=== PATIENT | female | born 1950 | race Caucasian/White ===

== ENCOUNTER 2018-12-26 10:52 | Emergency (ER) | payer OTHER ==
--- OUTSIDE RECORDS SUMMARY | 2018-12-26 10:54 | XMS REPORT ---
:1950 [facility] Address [address] [place] [address] Dr. G[address] [place] [id number] Care Team Providers Name Role Phone Unavailable Unavailable Unavailable Problems This patient has no known problems. Allergies, Adverse Reactions, Alerts This patient has no known allergies or adverse reactions. Medications This patient has no known medications.
--- OUTSIDE RECORDS SUMMARY | 2018-12-26 10:54 | XMS REPORT | Clinical Summary ---
:1950 Author Organization [facility] Address [address] [place] [address] Care Team Providers Name Role Phone Zay Lozano MD Primary Care Provider Allergies No Known Allergies Medications Medication Sig Dispensed Refills Start Date End Date Status losartan (COZAAR) 50 MG TK 1 T PO QD 0 04/21/2016 Active tablet escitalopram (LEXAPRO) 10 TK 1 T PO QD. 1 04/25/2016 Active MG tablet pentoxifylline (TRENTal) TK 1 T PO TID 2 04/26/2016 Active 400 mg CR tablet terbinafine HCl (LamiSIL) TK 1 T PO QD 0 02/02/2016 Active 250 mg tablet gabapentin (NEURONTIN) Take 300 mg by 0 Active 300 MG capsule mouth 3 (three) times a day. FARXIGA 5 mg tablet 0 09/09/2016 Active metFORMIN (GLUCOPHAGE) TK 1 T PO TWICE 3 06/16/2016 Active 1,000 mg tablet A DAY Active Problems Problem Noted Date Elbow mass 09/17/2016 Family History Medical History Relation Name Comments Cancer Father Diabetes Father Hypertension Father Cancer Mother Clotting disorder Mother Diabetes Mother Heart disease Mother Hypertension Mother Kidney disease Mother Diabetes Other Siblings Heart disease Other Siblings Hypertension Other Siblings Kidney disease Other Siblings Relation Name Status Comments Father Mother Other Siblings Social History Tobacco Use Types Packs/Day Years Used Date Never Smoker Smokeless Tobacco: Never Used Alcohol Use Drinks/Week oz/Week Comments No Sex Assigned at Date Recorded Not on file Job Start Date Occupation Industry Not on file Not on file Not on file Travel History Travel Start Travel End No recent travel history available. Last Filed Vital Signs Not on file Plan of Treatment Health Maintenance Due Date Last Done Comments BREAST CANCER SCREENING 1999 COLON CANCER SCREENING 1999 SHINGLES VACCINES (#1) 1999 65+ PNEUMOCOCCAL VACCINE (1 of 2 - PCV13) 2014 PNEUMOCOCCAL POLYSACCHARIDE VACCINE AGE 65 AND OVER 2014 INFLUENZA VACCINE 04/12/2019 Results Not on fileafter 12/25/2017 Insurance Payer Benefit Plan / Group Subscriber ID Type Phone Address MEDICARE MEDICARE PART A AND B xxxxxxxxxx Medicare [place], [place] [employer] xxxxxxxxx Commercial (Home) [place] [address] Advance Directives Patient has advance care planning documents on file. For more information, please contact:Gavin Weiss[address] [place] [address]
--- NOTE | 2018-12-26 13:00 | RAD REPORT ---
EXAM DESCRIPTION: RAD - Foot Left 3 View - 12/26/2018 12:42 pm CLINICAL HISTORY: Left Foot pain FINDINGS: No fracture or dislocation is seen. A large plantar calcaneal spurs present
--- NOTE | 2018-12-26 13:14 | EDPHYS ---
Physician Documentation [facility] Name: Kelli Faith Age: 68 yrs Sex: Female : 1950 Arrival Date: 12/26/2018 Time: 10:53 Bed DIS1 Private MD: ED Physician Salo Khan HPI: 12/26 13:10 This 68 yrs old Female presents to ER via Ambulatory with complaints of Foot gs Pain. 13:10 The patient presents with pain. The complaints affect the left foot. Onset: The gs symptoms/episode began/occurred 2 month(s) ago. Modifying factors: The symptoms are alleviated by nothing, the symptoms are aggravated by movement. Associated signs and symptoms: Pertinent negatives: numbness. Severity of symptoms: At their worst the symptoms were moderate, in the emergency department the symptoms are unchanged. The patient has experienced similar episodes in the past, chronically. The patient has not recently seen a physician. Historical: - Allergies: 11:02 No Known Allergies; hj - PMHx: 11:02 Diabetes - NIDDM; Hypertension; hj - PSHx: 11:02 Cholecystectomy; Hysterectomy; hj - Immunization history:: Adult Immunizations up to date. - Social history:: The patient lives at home, Smoking status: unknown. - Ebola Screening: : Patient negative for fever greater than or equal to 101.5 degrees Fahrenheit, and additional compatible Ebola Virus Disease symptoms Patient denies exposure to infectious person Patient denies travel to an Ebola-affected area in the 21 days before illness onset No symptoms or risks identified at this time. ROS: 13:10 All other systems are negative. gs Exam: 13:10 Skin: Warm, dry with normal turgor. Normal color with no rashes, no lesions, and no gs evidence of cellulitis. Neuro: Awake and alert, GCS 15, oriented to person, place, time, and situation. Cranial nerves II-XII grossly intact. Motor strength 5/5 in all extremities. Sensory grossly intact. Cerebellar exam normal. Normal gait. 13:10 Constitutional: The patient appears alert, awake. 13:10 Musculoskeletal/extremity: Extremities: noted in the lateral side of left foot: swelling, tenderness, mild, Pulses: are normal with no appreciated deficits, Sensation intact. Vital Signs: 11:02 BP 143 / 55; Pulse 60; Resp 18; Temp 98.3(O); Pulse Ox 98% on R/A; Weight 78.93 kg; hj Height 5 ft. 11 in. (180.34 cm); Pain 8/10; 11:02 Body Mass Index 24.27 (78.93 kg, 180.34 cm) hj MDM: 11:30 Patient medically screened. 13:10 Differential diagnosis: fracture, sprain, arthritis, gout. Data reviewed: vital signs, gs nurses notes, radiologic studies. 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 Response to treatment: the patient's symptoms have mildly improved after treatment, and as a result, I will discharge patient. 12/26 11:30 Order name: Foot Left 3 View XRAY; Complete Time: 13:12 Administered Medications: No medications were administered Disposition: 12/26/18 13:13 Discharged to Home. Impression: Pain in left foot. - Condition is Stable. - Discharge Instructions: Musculoskeletal Pain. - Medication Reconciliation Form, Thank You Letter, Antibiotic Education, Prescription Opioid Use form. - Follow up: Mason Wells DPM; When: 2 - 3 days; Reason: Re-evaluation by your physician. Signatures: Dispatcher [employer] EDShena Sevilla RN RN Theo Beauchamp RN RN hj Starr, Gregory, MD MD Corrections: (The following items were deleted from the chart) 13:36 13:13 12/26/2018 13:13 Discharged to Home. Impression: Pain in left foot. Condition is iw Stable. Forms are Medication Reconciliation Form, Thank You Letter, Antibiotic Education, Prescription Opioid Use. Follow up: Mason Wells; When: 2 - 3 days; Reason: Re-evaluation by your physician. gs
--- NOTE | 2018-12-26 13:14 | ER ---
Nurse's Notes [facility] Name: Kelli Faith Age: 68 yrs Sex: Female : 1950 Arrival Date: 12/26/2018 Time: 10:53 Bed DIS1 Private MD: Diagnosis: Pain in left foot Presentation: 12/26 11:00 Presenting complaint: Patient states: yandy been having pain on my L foot for a month now hj and its swollen now; denies trauma to the area;. Transition of care: patient was not received from another setting of care. Onset of symptoms was December 26, 2018. Risk Assessment: Do you want to hurt yourself or someone else? Patient reports no desire to harm self or others. Initial Sepsis Screen: Does the patient meet any 2 criteria? No. Patient's initial sepsis screen is negative. Does the patient have a suspected source of infection? No. Patient's initial sepsis screen is negative. Care prior to arrival: None. 11:00 Method Of Arrival: Ambulatory 11:00 Acuity: KYARA 4 hj Historical: - Allergies: 11:02 No Known Allergies; hj - PMHx: 11:02 Diabetes - NIDDM; Hypertension; hj - PSHx: 11:02 Cholecystectomy; Hysterectomy; hj - Immunization history:: Adult Immunizations up to date. - Social history:: The patient lives at home, Smoking status: unknown. - Ebola Screening: : Patient negative for fever greater than or equal to 101.5 degrees Fahrenheit, and additional compatible Ebola Virus Disease symptoms Patient denies exposure to infectious person Patient denies travel to an Ebola-affected area in the 21 days before illness onset No symptoms or risks identified at this time. Screenin:57 Abuse screen: Denies threats or abuse. Denies injuries from another. Nutritional iw screening: No deficits noted. Tuberculosis screening: No symptoms or risk factors identified. Fall Risk None identified. Assessment: 11:56 General: Appears in no apparent distress. Behavior is calm, cooperative. Pain: iw Complains of pain in left foot. Neuro: Level of Consciousness is awake, alert, obeys commands, Moves all extremities. Full function. Cardiovascular: Patient's skin is warm and dry. Respiratory: Respiratory effort is even, unlabored. Vital Signs: 11:02 BP 143 / 55; Pulse 60; Resp 18; Temp 98.3(O); Pulse Ox 98% on R/A; Weight 78.93 kg; hj Height 5 ft. 11 in. (180.34 cm); Pain 8/10; 11:02 Body Mass Index 24.27 (78.93 kg, 180.34 cm) ED Course: 10:53 Patient arrived in ED. as 11:01 Triage completed. hj 11:02 Arm band placed on left wrist. hj 11:14 Salo Khan MD is Attending Physician. gs 11:56 Shena Aguero, RN is Primary Nurse. iw 12:41 X-ray completed. Portable x-ray completed in exam room. Patient tolerated procedure sw well. 12:42 Foot Left 3 View XRAY In Process Unspecified. EDMS 13:00 Patient has correct armband on for positive identification. iw 13:13 Mason Wells DPM is Referral Physician. gs 13:35 No provider procedures requiring assistance completed. Patient did not have IV access iw during this emergency room visit. Administered Medications: No medications were administered Outcome: 13:13 Discharge ordered by . gs 13:35 Discharged to home ambulatory. iw 13:35 Condition: good 13:35 Discharge instructions given to patient, Instructed on discharge instructions, follow up and referral plans. Demonstrated understanding of instructions, follow-up care. 13:36 Patient left the ED. iw Signatures: Dispatcher [employer] Angelina Castellanos as Shena Aguero, RN CHELSIE Mallorie Oquendo Henry RN RN Salo Khan MD MD Corrections: (The following items were deleted from the chart) 11:04 11:02 Pulse 60bpm; Resp 18bpm; Pulse Ox 98% RA; Temp 98.3F Oral; 78.93 kg; Height 5 ft. hj 11 in.; BMI: 24.2; Pain 8/10; hj
== END 2018-12-26 13:36 | disposition home or self-care (01) ==
LOC: ER 10:52
DX: M79.672 Pain in left foot (principal); I10 Essential (primary) hypertension
CPT/HCPCS: 99283

== ENCOUNTER 2019-07-14 20:50 | Emergency (ER) | payer OTHER ==
[2019-07-14] MEDS ORDERED: ACETAMINOPHEN 325 MG TABLET ONE (21:22)
[2019-07-14] MEDS ORDERED: IBUPROFEN 400 MG TAB ONE (21:22)
[2019-07-14] MEDS ORDERED: AMOX/K CLAV 875 MG TAB ONE (21:22)
--- NOTE | 2019-07-14 21:28 | ER ---
Nurse's Notes [facility] Name: Kelli Faith Age: 68 yrs Sex: Female : 1950 Arrival Date: 07/14/2019 Time: 20:51 Bed 17 Private MD: Diagnosis: Otitis media, unspecified, left ear Presentation: 07/14 20:57 Presenting complaint: Patient states: left ear X1 day. Transition of care: patient was ak1 not received from another setting of care. Onset of symptoms is unknown. Risk Assessment: Do you want to hurt yourself or someone else? Patient reports no desire to harm self or others. Initial Sepsis Screen: Does the patient meet any 2 criteria? No. Patient's initial sepsis screen is negative. Does the patient have a suspected source of infection? No. Patient's initial sepsis screen is negative. Care prior to arrival: None. 20:57 Method Of Arrival: Ambulatory ak1 20:57 Acuity: KYARA 4 ak1 Triage Assessment: 20:58 General: Appears uncomfortable. ak1 21:17 General: Behavior is calm, cooperative, appropriate for age. cc3 Historical: - Allergies: 20:58 No Known Allergies; ak1 - Home Meds: 20:58 aspirin 81 mg Oral chew 1 tab once daily [Active]; metformin 1,000 mg Oral tr24 2 tabs ak1 once daily [Active]; meloxicam 15 mg Oral tab 1 tab once daily [Active]; losartan 25 mg oral tab 1 tab once daily [Active]; Farxiga 5 mg Oral tab 1 tab once daily [Active]; escitalopram oxalate 10 mg Oral tab 1 tab once daily [Active]; - PMHx: 20:58 Diabetes - NIDDM; Hypertension; ak1 - PSHx: 20:58 Cholecystectomy; Hysterectomy; ak1 - Immunization history:: Adult Immunizations unknown, Flu vaccine is not up to date. Patient has never been vaccinated. - Social history:: Smoking status: Patient/guardian denies using tobacco. - Ebola Screening: : No symptoms or risks identified at this time. Screenin:17 Abuse screen: Denies threats or abuse. Denies injuries from another. Nutritional cc3 screening: No deficits noted. Tuberculosis screening: No symptoms or risk factors identified. Fall Risk Ambulatory Aid- None/Bed Rest/Nurse Assist (0 pts). Gait- Normal/Bed Rest/Wheelchair (0 pts) Mental Status- Oriented to own ability (0 pts). Assessment: 21:17 General: Appears in no apparent distress. uncomfortable, Behavior is calm, cooperative, cc3 appropriate for age. Pain: Complains of pain in left ear Quality of pain is described as aching. Neuro: Level of Consciousness is awake, alert, obeys commands, Oriented to person, place, time, situation, Appropriate for age. Cardiovascular: Denies chest pain, Heart tones S1 S2 present Capillary refill < 3 seconds in bilateral fingers Patient's skin is warm and dry. Respiratory: Airway is patent Respiratory effort is even, unlabored, Respiratory pattern is regular, symmetrical, Breath sounds are clear bilaterally. GI: Abdomen is flat. : No signs and/or symptoms were reported regarding the genitourinary system. EENT: Reports pain in left ear. Derm: Skin is intact, is healthy with good turgor, Skin is pink, warm \T\ dry. normal. Musculoskeletal: No signs and/or symptoms reported regarding the musculoskeletal system. 21:35 Reassessment: Patient appears in no apparent distress at this time. Patient and/or cc3 family updated on plan of care and expected duration. Pain level reassessed. Patient is alert, oriented x 3, equal unlabored respirations, skin warm/dry/pink. PA Page discharged the patient home with prescription given. No IV cannula in situ. Patient left ER vitally stable and ambulatory. No valuables left in the patient's room. Patient denies pain at this time. Patient states feeling better. Patient states symptoms have improved. Vital Signs: 20:58 BP 182 / 69; Pulse 65; Resp 16; Temp 97.8; Pulse Ox 99% on R/A; Weight 78.02 kg (R); ak1 Height 6 ft. 0 in. (182.88 cm) (R); Pain 8/10; 21:30 BP 156 / 65; Pulse 64; Resp 16 S; Pulse Ox 98% on R/A; Pain 3/10; cc3 20:58 Body Mass Index 23.33 (78.02 kg, 182.88 cm) ak1 ED Course: 20:51 Patient arrived in ED. ds1 20:57 Triage completed. ak1 20:58 Arm band placed on Patient placed in an exam room, on a stretcher, Patient notified of ak1 wait time. 21:01 Carlos Mejia PA is PHCP. cp 21:01 Carlos Neely MD is Attending Physician. cp 21:17 Gloria Diaz is Primary Nurse. cc3 21:17 Patient has correct armband on for positive identification. Bed in low position. Call cc3 light in reach. Side rails up X 1. Pulse ox on. NIBP on. 21:35 No provider procedures requiring assistance completed. Patient did not have IV access cc3 during this emergency room visit. Administered Medications: 21:21 Drug: Augmentin 875 mg Route: PO; 21:35 Follow up: Response: No adverse reaction cc3 21:23 Drug: Tylenol 650 mg Route: PO; 21:35 Follow up: Response: No adverse reaction; Pain is decreased cc3 21:25 Drug: Ibuprofen 800 mg Route: PO; 21:35 Follow up: Response: No adverse reaction; Pain is decreased cc3 Outcome: 21:27 Discharge ordered by MD. cp 21:35 Discharged to home ambulatory. cc3 21:35 Condition: stable 21:35 Discharge instructions given to patient, Instructed on discharge instructions, follow up and referral plans. medication usage, Demonstrated understanding of instructions, follow-up care, medications, Prescriptions given X 1. 21:38 Patient left the ED. cc3 Signatures: Linda Peña ds1 Nicole Montes, RN RN ak1 Carlos Mejia PA PA America Garcia Gloria Diaz cc3
--- NOTE | 2019-07-14 21:28 | EDPHYS ---
Physician Documentation [facility] Name: Kelli Faith Age: 68 yrs Sex: Female : 1950 Arrival Date: 07/14/2019 Time: 20:51 Bed 17 Private MD: ED Physician Carlos Neely HPI: 07/14 21:14 This 68 yrs old Female presents to ER via Ambulatory with complaints of Ear cp Pain. 21:14 The patient presents with pain, that is acute. The complaints affect the left ear. cp Onset: The symptoms/episode began/occurred yesterday. Associated signs and symptoms: Pertinent positives: sore throat, cough, Pertinent negatives: fever, lightheadedness, sinus trouble, vertigo, vomiting. Severity of symptoms: in the emergency department the symptoms are unchanged despite home interventions. Historical: - Allergies: 20:58 No Known Allergies; ak1 - Home Meds: 20:58 aspirin 81 mg Oral chew 1 tab once daily [Active]; metformin 1,000 mg Oral tr24 2 tabs ak1 once daily [Active]; meloxicam 15 mg Oral tab 1 tab once daily [Active]; losartan 25 mg oral tab 1 tab once daily [Active]; Farxiga 5 mg Oral tab 1 tab once daily [Active]; escitalopram oxalate 10 mg Oral tab 1 tab once daily [Active]; - PMHx: 20:58 Diabetes - NIDDM; Hypertension; ak1 - PSHx: 20:58 Cholecystectomy; Hysterectomy; ak1 - Immunization history:: Adult Immunizations unknown, Flu vaccine is not up to date. Patient has never been vaccinated. - Social history:: Smoking status: Patient/guardian denies using tobacco. - Ebola Screening: : No symptoms or risks identified at this time. ROS: 21:15 Eyes: Negative for injury, pain, redness, and discharge. cp 21:15 Constitutional: Negative for body aches, chills, fever, poor PO intake. 21:15 ENT: Positive for ear pain, sore throat, Negative for drainage from ear(s), sinus congestion, sinus pain, difficulty swallowing, difficulty handling secretions. 21:15 Cardiovascular: Negative for chest pain, palpitations. 21:15 Respiratory: Positive for cough, Negative for shortness of breath, wheezing. 21:15 Abdomen/GI: Negative for abdominal pain, vomiting, diarrhea, constipation. 21:15 Skin: Negative for rash. 21:15 Neuro: Negative for altered mental status, dizziness, weakness. 21:15 All other systems are negative. Exam: 21:22 Head/Face: Normocephalic, atraumatic. cp 21:22 Constitutional: The patient appears in no acute distress, alert, awake, non-toxic, well developed, well nourished. 21:22 Eyes: Periorbital structures: appear normal, Conjunctiva: normal, no exudate, no injection, Lids and lashes: appear normal, bilaterally. 21:22 ENT: External ear(s): are unremarkable, Ear canal(s): erythema, of the left canal, TM's: erythema, that is mild, on the left, fluid levels, on the left, Examination of the other ear shows no obvious abnormality, Nose: is normal, Mouth: Lips: moist, Oral mucosa: pink and intact, moist, Posterior pharynx: is normal, airway is patent, no erythema, no exudate. 21:22 Neck: ROM/movement: is normal, is supple, without pain, no range of motions limitations, no nuchal rigidity. 21:22 Chest/axilla: Inspection: normal. 21:22 Cardiovascular: Rate: normal. 21:22 Respiratory: the patient does not display signs of respiratory distress, Respirations: normal, no use of accessory muscles, no retractions, no splinting, no tachypnea, labored breathing, is not present. Vital Signs: 20:58 BP 182 / 69; Pulse 65; Resp 16; Temp 97.8; Pulse Ox 99% on R/A; Weight 78.02 kg (R); ak1 Height 6 ft. 0 in. (182.88 cm) (R); Pain 8/10; 21:30 BP 156 / 65; Pulse 64; Resp 16 S; Pulse Ox 98% on R/A; Pain 3/10; cc3 20:58 Body Mass Index 23.33 (78.02 kg, 182.88 cm) ak1 MDM: 21:02 Patient medically screened. cp 21:15 Differential diagnosis: otitis media, otitis externa, ruptured TM, cerumen impaction. cp 21:27 Data reviewed: vital signs, nurses notes, and as a result, I will discharge patient. cp 21:27 Counseling: I had a detailed discussion with the patient and/or guardian regarding: the cp historical points, exam findings, and any diagnostic results supporting the discharge/admit diagnosis, to return to the emergency department if symptoms worsen or persist or if there are any questions or concerns that arise at home. Administered Medications: 21:21 Drug: Augmentin 875 mg Route: PO; 21:35 Follow up: Response: No adverse reaction cc3 21:23 Drug: Tylenol 650 mg Route: PO; 21:35 Follow up: Response: No adverse reaction; Pain is decreased cc3 21:25 Drug: Ibuprofen 800 mg Route: PO; 21:35 Follow up: Response: No adverse reaction; Pain is decreased cc3 Disposition: 07/14/19 21:27 Discharged to Home. Impression: Otitis media, unspecified, left ear. - Condition is Stable. - Discharge Instructions: Otitis Media, Adult. - Prescriptions for Amoxicillin 875 mg Oral Tablet - take 1 tablet by ORAL route every 12 hours for 10 days; 20 tablet. - Medication Reconciliation Form, Thank You Letter, Antibiotic Education, Prescription Opioid Use form. - Follow up: Private Physician; When: 2 - 3 days; Reason: Worsening of condition. - Problem is new. - Symptoms have improved. Addendum: 07/16/2019 08:00 Co-signature as Attending Physician, Carlos Neely MD I agree with the assessment and c denny plan of care. Signatures: Carlos Neely MD MD cha Krenek, Amber, RN RN ak1 Carlos Mejia PA PA cp Cecilio, America wh Gloria Diaz cc3 Corrections: (The following items were deleted from the chart) 07/14 21:38 21:27 07/14/2019 21:27 Discharged to Home. Impression: Otitis media, unspecified, left cc3 ear. Condition is Stable. Forms are Medication Reconciliation Form, Thank You Letter, Antibiotic Education, Prescription Opioid Use. Follow up: Private Physician; When: 2 - 3 days; Reason: Worsening of condition. Problem is new. Symptoms have improved. cp 07/15 19:05 07/14 21:10 Differential diagnosis: otitis media, otitis externa, ruptured TM, acute cp otalgia, cerumen impaction, cp
[2019-07-14 21:43] VITALS: BP 182/69; TEMP 97.8; O2SAT 99
== END 2019-07-14 21:38 | disposition home or self-care (01) ==
LOC: ER 20:50
DX: H66.92 Otitis media, unspecified, left ear (principal); E11.9 Type 2 diabetes mellitus without complications; I10 Essential (primary) hypertension
CPT/HCPCS: 99283

== ENCOUNTER 2019-08-12 07:39 | Emergency (ER) | payer OTHER ==
--- OUTSIDE RECORDS SUMMARY | 2019-08-12 07:41 | XMS REPORT ---
:1950 [facility] Address [address] [place] [address] Dr. G[address]do [address] [place] [id number] Care Team Providers Name Role Phone Unavailable Unavailable Unavailable Problems This patient has no known problems. Allergies, Adverse Reactions, Alerts This patient has no known allergies or adverse reactions. Medications This patient has no known medications.
[2019-08-12 08:19] LABS: Absolute Lymphocytes (CBC) 2.6 K/uL (0.7-4.9); Basophils % 0.5 % (0-1.3); Hematocrit 45.8 % (36.0-45.0); Lymphocytes % 34.4 % (15.3-44.8); MPV 8.4 fL (7.6-11.3); RBC Red Blood Cell Count 5.18 M/uL (3.86-4.86)
[2019-08-12 08:21] LABS: Protime INR 0.87
[2019-08-12] MEDS ORDERED: MORPHINE 4 MG/ML SYR ONE (08:42)
[2019-08-12] MEDS ORDERED: ONDANSETRON 4 MG/2 ML VIAL ONE (08:42)
[2019-08-12 08:43] LABS: ALT/SGPT 17 U/L (12-78); AST/SGOT 12 U/L (15-37); Albumin 3.7 g/dL (3.4-5.0); Alkaline Phosphatase 61 U/L (45-117); BUN Blood Urea Nitrogen 13 mg/dL (7-18); Bicarbonate 25 mmol/L (21-32); Bilirubin Total 0.4 mg/dL (0.2-1.0); Glucose Level 163 mg/dL (74-106); Magnesium 1.9 mg/dL (1.8-2.4); NT PRO-BNP 76 pg/mL (<125); Protein, Total 7.6 g/dL (6.4-8.2); Sodium Level 139 mmol/L (136-145); Troponin (Emerg Dept Use Only) < 0.02 ng/mL (0.0-0.045)
--- NOTE | 2019-08-12 09:10 | EKG ---
Test Date: 2019-08-12 Test Time: 07:56:36 Scarf And Anneal Operator: HB MEASUREMENT RESULTS: Intervals: Rate: 63 LA: 168 QRSD: 90 QT: 414 QTc: 423 [place]: P: -7 LA: 168 QRS: -50 T: 39 INTERPRETIVE STATEMENTS: Sinus rhythm with premature atrial complexes Left anterior fascicular block Septal infarct, age undetermined Abnormal ECG Compared to ECG 05/07/2005 08:41:00 Atrial premature complex(es) now present Left anterior fascicular block now present Myocardial infarct finding now present Sinus bradycardia no longer present Electronically Signed On 08-12-19 09:10:17 POWER SYSTEM OPERATOR by Madi Ayala
--- NOTE | 2019-08-12 12:06 | ER ---
Nurse's Notes [facility] Name: Kelli Faith Age: 68 yrs Sex: Female : 1950 Arrival Date: 08/12/2019 Time: 07:40 Bed 7 Private MD: Zay Lozano Diagnosis: Pain in right shoulder;Subscapular pain Presentation: 08/12 07:48 Presenting complaint: Right upper back pain that radiates to right arm x 3 days, hb anterior chest pain and mild SOB upon waking today. Denies cough/fever. Transition of care: patient was not received from another setting of care. Onset of symptoms was August 09, 2019. Risk Assessment: Do you want to hurt yourself or someone else? Patient reports no desire to harm self or others. Initial Sepsis Screen: Does the patient meet any 2 criteria? No. Patient's initial sepsis screen is negative. Does the patient have a suspected source of infection? No. Patient's initial sepsis screen is negative. Care prior to arrival: None. 07:48 Method Of Arrival: Ambulatory hb 07:48 Acuity: KYARA 3 hb Triage Assessment: 07:45 General: Appears in no apparent distress. comfortable, Behavior is cooperative, bp appropriate for age, anxious. Pain: Complains of pain in chest Pain began 2-3 days ago. EENT: No deficits noted. Neuro: No deficits noted. Cardiovascular: Rhythm is sinus rhythm. Respiratory: No deficits noted. GI: No signs and/or symptoms were reported involving the gastrointestinal system. : No signs and/or symptoms were reported regarding the genitourinary system. Derm: No deficits noted. Musculoskeletal: No deficits noted. Historical: - Allergies: 07:51 No Known Allergies; hb - Home Meds: 07:51 aspirin 81 mg Oral chew 1 tab once daily [Active]; escitalopram oxalate 10 mg Oral tab hb 1 tab once daily [Active]; Farxiga 5 mg Oral tab 1 tab once daily [Active]; losartan 25 mg Oral tab 1 tab once daily [Active]; meloxicam 15 mg Oral tab 1 tab once daily [Active]; metformin 1,000 mg Oral tr24 2 tabs once daily [Active]; - PMHx: 07:51 Diabetes - NIDDM; Hypertension; Mitral Valve Prolapse; hb - PSHx: 07:51 Cholecystectomy; Hysterectomy; hb - Immunization history:: Adult Immunizations up to date. - Social history:: Smoking status: Patient/guardian denies using tobacco. - Ebola Screening: : No symptoms or risks identified at this time. Screenin:11 Abuse screen: Denies threats or abuse. Denies injuries from another. Nutritional bp screening: No deficits noted. Tuberculosis screening: No symptoms or risk factors identified. Fall Risk None identified. Assessment: 07:45 General: SEE TRIAGE NOTE. Pain: Complains of pain in chest Pain does not radiate. bp Pain:. Pain: Pain began 2-3 days ago. Cardiovascular: Rhythm is sinus rhythm. 10:00 Reassessment: S/S RELIEVED, LAB RESULTS PENDING FOR DISPO. bp 12:17 Reassessment: PT D/C HOME AMBULATORY WITH FAMILY, DX WITH MUSCULOSKELETAL PAIN. bp Vital Signs: 07:51 BP 169 / 73; Pulse 71; Resp 16; Temp 98.3; Pulse Ox 100% on R/A; Weight 74.84 kg; hb Height 5 ft. 7 in. (170.18 cm); Pain 7/10; 08:12 BP 153 / 77; Pulse 61; Resp 16; Pulse Ox 100% ; bp 09:18 BP 131 / 52; Pulse 58; Resp 13 S; Pulse Ox 96% on R/A; ca1 10:12 BP 120 / 49; Pulse 57; Resp 19 S; Pulse Ox 100% on R/A; ca1 11:06 BP 125 / 61; Pulse 51; Resp 11; Temp 98.6(O); Pulse Ox 95% on R/A; mh5 12:15 BP 126 / 89; Pulse 66; Resp 18; Temp 98.5; Pulse Ox 97% ; bp 07:51 Body Mass Index 25.84 (74.84 kg, 170.18 cm) hb ED Course: 07:40 Patient arrived in ED. as 07:42 Zay Lozano MD is Private Physician. as 07:42 Chino Talley MD is Attending Physician. ps1 07:50 Triage completed. hb 07:51 Arm band placed on. hb 07:55 Zay Nassar, CHELSIE is Primary Nurse. bp 08:00 Inserted saline lock: 20 gauge in right forearm, using aseptic technique. Blood bp collected. Patient maintains SpO2 saturation greater than 95% on room air. 08:01 XRAY Chest (1 view) In Process Unspecified. EDMS 08:11 Patient has correct armband on for positive identification. Placed in gown. Bed in low bp position. Call light in reach. Side rails up X2. support specialist on. Pulse ox on. NIBP on. 10:32 Repeat lab(s) drawn. by wa, sent to lab. [facility] 10:32 Troponin (emerg Dept Use Only) Sent. [facility] 12:04 Zay Lozano MD is Referral Physician. ps1 12:04 Sree Wills MD is Referral Physician. ps1 12:16 No provider procedures requiring assistance completed. IV discontinued, intact, bp bleeding controlled, No redness/swelling at site. Pressure dressing applied. Administered Medications: 08:40 Drug: morphine 4 mg Route: IVP; Site: right antecubital; bp 12:16 Follow up: Response: Pain is decreased bp 08:40 Drug: Zofran 4 mg Route: IVP; Site: right forearm; bp 12:16 Follow up: Response: No adverse reaction bp Outcome: 12:05 Discharge ordered by MD. ps1 12:16 Discharged to home ambulatory, with family. bp 12:16 Condition: stable 12:16 Discharge instructions given to patient, Instructed on discharge instructions, follow up and referral plans. medication usage, Demonstrated understanding of instructions, follow-up care, medications, Prescriptions given X 1. 12:17 Patient left the ED. bp Signatures: Dispatcher [employer] EDAL Angelina Rosas Heather, CHELSIE HOLGUIN Jammie Rosas [facility] Zay Nassar RN RN bp Chino Talley MD MD ps1 Florinda Frey RN RN ca1 Corrections: (The following items were deleted from the chart) 08:11 07:45 Pain: Pain began 1 day ago. bp bp
--- NOTE | 2019-08-12 12:07 | EDPHYS ---
Physician Documentation [facility] Name: Kelli Faith Age: 68 yrs Sex: Female : 1950 Arrival Date: 08/12/2019 Time: 07:40 Bed 7 Private MD: Zay Lozano ED Physician Chino Talley HPI: 08/12 07:42 This 68 yrs old Female presents to ER via Unassigned with complaints of Chest ps1 Pain. 07:42 The patient or guardian reports chest pain that is located primarily in the substernal ps1 area, anterior chest wall. Onset: 1 week(s) ago, and became worse yesterday. The pain radiates to the right arm, The chest pain is described as aching. Patient has DM2 sees Elma. Had stress/echo this year that was normal for preventative screening without cause. Additionally has hypertension and reduced the medication (losartan) for fatigue. Has hypertension this morning, although attributed to pain. Pain is moderate and aching. No recent trauma or exertion. States that she additionally had hx of Fe deficiency anemia without lab evidence. Takes Fe otherwise. . Historical: - Allergies: 07:51 No Known Allergies; hb - Home Meds: 07:51 aspirin 81 mg Oral chew 1 tab once daily [Active]; escitalopram oxalate 10 mg Oral tab hb 1 tab once daily [Active]; Farxiga 5 mg Oral tab 1 tab once daily [Active]; losartan 25 mg Oral tab 1 tab once daily [Active]; meloxicam 15 mg Oral tab 1 tab once daily [Active]; metformin 1,000 mg Oral tr24 2 tabs once daily [Active]; - PMHx: 07:51 Diabetes - NIDDM; Hypertension; Mitral Valve Prolapse; hb - PSHx: 07:51 Cholecystectomy; Hysterectomy; hb - Immunization history:: Adult Immunizations up to date. - Social history:: Smoking status: Patient/guardian denies using tobacco. - Ebola Screening: : No symptoms or risks identified at this time. ROS: 07:42 Constitutional: Negative for fever, chills, and weight loss, Eyes: Negative for injury, ps1 pain, redness, and discharge, ENT: Negative for injury, pain, and discharge, Respiratory: Negative for shortness of breath, cough, wheezing, and pleuritic chest pain, Abdomen/GI: Negative for abdominal pain, nausea, vomiting, diarrhea, and constipation, MS/Extremity: Negative for injury and deformity, Skin: Negative for injury, rash, and discoloration, Neuro: Negative for headache, weakness, numbness, tingling, and seizure. 07:42 Cardiovascular: Positive for chest pain, of the anterior aspect of right upper chest and right lateral posterior chest. Exam: 07:42 Constitutional: This is a well developed, well nourished patient who is awake, alert, ps1 and in no acute distress. Head/Face: Normocephalic, atraumatic. Eyes: Pupils equal round and reactive to light, extra-ocular motions intact. Lids and lashes normal. Conjunctiva and sclera are non-icteric and not injected. Chest/axilla: Normal chest wall appearance and motion. Nontender with no deformity. No lesions are appreciated. Cardiovascular: Regular rate and rhythm. No gallops, murmurs, or rubs. Normal PMI, no JVD. No pulse deficits. Respiratory: Lungs have equal breath sounds bilaterally, clear to auscultation and percussion. No rales, rhonchi or wheezes noted. No increased work of breathing, no retractions or nasal flaring. Abdomen/GI: Soft, non-tender, with normal bowel sounds. No distension or tympany. No guarding or rebound. No evidence of tenderness throughout. MS/ Extremity: Pulses equal, no cyanosis. Neurovascular intact. Full, normal range of motion. Neuro: Awake and alert, GCS 15, oriented to person, place, time, and situation. Cranial nerves II-XII grossly intact. Sensory grossly intact. Psych: Awake, alert, with orientation to person, place and time. Behavior, mood, and affect are within normal limits. Vital Signs: 07:51 BP 169 / 73; Pulse 71; Resp 16; Temp 98.3; Pulse Ox 100% on R/A; Weight 74.84 kg; hb Height 5 ft. 7 in. (170.18 cm); Pain 7/10; 08:12 BP 153 / 77; Pulse 61; Resp 16; Pulse Ox 100% ; bp 09:18 BP 131 / 52; Pulse 58; Resp 13 S; Pulse Ox 96% on R/A; ca1 10:12 BP 120 / 49; Pulse 57; Resp 19 S; Pulse Ox 100% on R/A; ca1 11:06 BP 125 / 61; Pulse 51; Resp 11; Temp 98.6(O); Pulse Ox 95% on R/A; mh5 12:15 BP 126 / 89; Pulse 66; Resp 18; Temp 98.5; Pulse Ox 97% ; bp 07:51 Body Mass Index 25.84 (74.84 kg, 170.18 cm) hb MDM: 07:56 Patient medically screened. ps1 12:02 Data reviewed: vital signs, nurses notes, lab test result(s), EKG, radiologic studies, ps1 and as a result, I will discharge patient. Counseling: I had a detailed discussion with the patient and/or guardian regarding: the historical points, exam findings, and any diagnostic results supporting the discharge/admit diagnosis, lab results, radiology results, the need for outpatient follow up, a promotions producer, Dr. Wills, to return to the emergency department if symptoms worsen or persist or if there are any questions or concerns that arise at home. ED course: Pt requested OP follow up with Dr. Wills. Pain improved. Delta troponin negative. Strong return precautions given. . 08/12 07:42 Order name: CBC with Diff; Complete Time: 08:50 ps1 08/12 07:42 Order name: Magnesium; Complete Time: 08:47 ps1 08/12 07:42 Order name: NT PRO-BNP; Complete Time: 08:47 ps1 08/12 07:42 Order name: PT-INR; Complete Time: 08:47 ps1 08/12 07:42 Order name: Troponin (emerg Dept Use Only); Complete Time: 08:47 ps1 08/12 07:42 Order name: CMP; Complete Time: 08:47 ps1 08/12 07:42 Order name: XRAY Chest (1 view) ps1 08/12 07:42 Order name: EKG; Complete Time: 07:44 ps1 08/12 07:42 Order name: Cardiac monitoring; Complete Time: 07:55 ps1 08/12 07:42 Order name: EKG - Nurse/Tech; Complete Time: 07:55 ps1 08/12 07:42 Order name: IV Saline Lock; Complete Time: 08:09 ps1 08/12 10:29 Order name: Troponin (emerg Dept Use Only); Complete Time: 11:37 ps1 08/12 07:42 Order name: Labs collected and sent; Complete Time: 08:09 ps1 08/12 07:42 Order name: O2 Per Protocol; Complete Time: 08: ps1 08/12 07:42 Order name: O2 Sat Monitoring; Complete Time: 08:09 ps1 EC:56 Rate is 63 beats/min. Rhythm is regular. QRS [place] is Normal. [place] interval is normal. QRS ps1 interval is normal. QT interval is normal. No Q waves. T waves are Normal. No ST changes noted. Clinical impression: NSR w/ Non-specific ST/T Changes and LAFB, PAC's. Interpreted by me. Administered Medications: 08:40 Drug: morphine 4 mg Route: IVP; Site: right antecubital; bp 12:16 Follow up: Response: Pain is decreased bp 08:40 Drug: Zofran 4 mg Route: IVP; Site: right forearm; bp 12:16 Follow up: Response: No adverse reaction bp Disposition: 08/12/19 12:05 Discharged to Home. Impression: Pain in right shoulder, Subscapular pain. - Condition is Stable. - Discharge Instructions: Musculoskeletal Pain, Shoulder Pain. - Prescriptions for Anaprox DS 550 mg Oral Tablet - take 1 tablet by ORAL route every 12 hours As needed; 20 tablet. - Medication Reconciliation Form, Thank You Letter, Antibiotic Education, Prescription Opioid Use form. - Follow up: Zay Lozano MD; When: As needed; Reason: Further diagnostic work-up, Recheck today's complaints, Continuance of care, Re-evaluation by your physician. Follow up: Sree Wills MD; When: 48 Hours; Reason: Further diagnostic work-up, Recheck today's complaints, Re-evaluation by your physician. - Problem is new. - Symptoms have improved. Signatures: Dispatcher [employer] EDMS Sheila Garces RN RN Zay Huffman RN RN Chino Smith MD MD ps1 Corrections: (The following items were deleted from the chart) 12:05 12:05 08/12/2019 12:05 Discharged to Home. Impression: Pain in right shoulder; ps1 Subscapular pain. Condition is Stable. Forms are Medication Reconciliation Form, Thank You Letter, Antibiotic Education, Prescription Opioid Use. Follow up: Zay Lozano; When: As needed; Reason: Further diagnostic work-up, Recheck today's complaints, Continuance of care, Re-evaluation by your physician. Follow up: Sree Wills; When: 48 Hours; Reason: Further diagnostic work-up, Recheck today's complaints, Re-evaluation by your physician. ps1 12:17 12:05 08/12/2019 12:05 Discharged to Home. Impression: Pain in right shoulder; bp Subscapular pain. Condition is Stable. Forms are Medication Reconciliation Form, Thank You Letter, Antibiotic Education, Prescription Opioid Use. Follow up: Zay Lozano; When: As needed; Reason: Further diagnostic work-up, Recheck today's complaints, Continuance of care, Re-evaluation by your physician. Follow up: Sree Wills; When: 48 Hours; Reason: Further diagnostic work-up, Recheck today's complaints, Re-evaluation by your physician. Problem is new. Symptoms have improved. ps1
[2019-08-12 12:31] VITALS: BP 126/89; TEMP 98.5; O2SAT 97
--- NOTE | 2019-08-12 12:37 | RAD REPORT ---
EXAM DESCRIPTION: RAD - Chest Single View - 08/12/2019 8:03 am CLINICAL HISTORY: CHEST PAIN Chest pain. COMPARISON: CHEST PA AND LAT 2 VIEW dated 12/11/2014 FINDINGS: Portable technique limits examination quality. The lungs are grossly clear. The heart is normal in size. No displaced fractures. Cervical spine hard claudio plate. IMPRESSION: No acute intrathoracic process suspected.
== END 2019-08-12 12:17 | disposition home or self-care (01) ==
LOC: ER 07:39
DX: M25.511 Pain in right shoulder (principal); E11.9 Type 2 diabetes mellitus without complications; I10 Essential (primary) hypertension
CPT/HCPCS: 93005; 85025; 36415; 83735; 85610; 84484 ×2; 80053; 83880; 71045; 96375; 96374; 99285; J2405

== ENCOUNTER 2020-05-27 08:26 | Emergency (ER) | payer OTHER ==
--- OUTSIDE RECORDS SUMMARY | 2020-05-27 09:22 | XMS REPORT | Clinical Summary ---
:1950 Author Organization [facility] Address [address] [place] [address] Care Team Providers Name Role Phone Zay [...] Last Done Comments BREAST CANCER SCREENING 1999 COLONOSCOPY SCREENING 1999 SHINGLES VACCINES (#1) 1999 65+ PNEUMOCOCCAL VACCINE (1 of 2 - PCV13) 2014 INFLUENZA VACCINE 06/12/2020 Results Not on fileafter 05/27/2019 Insurance Payer Benefit Plan / Subscriber ID Effective Dates Phone Addre ss Type Group MEDICARE MEDICARE PART A xxxxxxxxxx 2014-Present ROSE MUNGUIA Medicare AND B COLONIAL COLONIAL LIFE xxxxxxxxx 2015-Present Commercial AND [employer]ID[employer] Advance Directives For more information, please contact: [phone] Type Date Recorded 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
--- OUTSIDE RECORDS SUMMARY | 2020-05-27 09:22 | XMS REPORT | Continuity of Care Document ---
:1950 Author Organization [facility] t Address [address] [place] [address] Care Team Providers Name Role Phone Carmelo Lozano MD Primary Care Physician Pob1, Care Clinic Attending Clinician Unavailable Problems Condition Condition Condition Status Onset Resolution Last Treating Co mments Source Name Details Category Date Date Treatment Clinician Date Elbow mass Elbow mass Disease Active [place] 09-17 [facility] 00:00: st 00 Allergies, Adverse Reactions, Alerts This patient has no known allergies or adverse reactions. Family History Family Member Diagnosis Comments Start Date Stop Date Source Natural father Cancer [facility] Natural father Diabetes [facility] Natural father Hypertension [facility] Natural mother Cancer [facility] Natural mother Clotting disorder [place] [facility] [facility] Natural mother Diabetes [facility] Natural mother Heart disease [facility] Natural mother Hypertension [facility] Natural mother Kidney disease [place] [facility] Other Diabetes [facility] Other Heart disease [facility] Other Hypertension [facility] Other Kidney disease [facility] Social History Social Habit Start Date Stop Date Quantity Comments Source Sex Assigned At [facility] Alcohol intake 2016-07-15 2016-07-15 Current [facility]odist 00:00:00 00:00:00 non-drinker of alcohol (finding) Smoking Status Start Date Stop Date Source Never smoker [facility] Medications Ordered Filled Start Stop Current Ordering Indication Dosage Frequency Signature Comments Components Source Medication Medication Date Date Medication? Clinician (SIG) Name Name gabapentin Yes 300mg [id number] Take 300 [facility] (NEURONTIN) 09-17 [id number] mg by M [facility]i 300 MG 14:50: 3D mouth 3 st capsule 58 (three) times a day. FARXIGA 5 2015-09 Yes Alonso mg tablet 2-29 [facility] 00:00: st 00 metFORMIN 2015-09 Yes TK 1 T PO [place] (GLUCOPHAGE 0-05 TWICE A Metho di ) 1,000 mg 00:00: DAY st tablet 00 pentoxifyll Yes TK 1 T PO [place] ine 8-15 TID [facility] (TRENTal) 00:00: st 400 mg CR 00 tablet escitalopra Yes TK 1 T PO [place] m (LEXAPRO) 8-14 QD. [facility] 10 MG 00:00: st tablet 00 losartan Yes TK 1 T PO [place] (COZAAR) 50 8-10 QD [facility] MG tablet 00:00: st 00 terbinafine Yes TK 1 T PO [place] HCl 5-23 QD [facility] (LamiSIL) 00:00: st 250 mg 00 tablet Procedures This patient has no known procedures. Plan of Care Planned Activity Planned Date Details Comments Source Future Scheduled 2020-06-12 INFLUENZA VACCINE [place] [facility] Test 00:00:00 [code = INFLUENZA VACCINE] Future Scheduled 2014 65+ PNEUMOCOCCAL [facility] Test 00:00:00 VACCINE (1 of 2 - PCV13) [code = 65+ PNEUMOCOCCAL VACCINE (1 of 2 - PCV13)] Future Scheduled 1999 BREAST CANCER [facility] thodist Test 00:00:00 SCREENING [code = BREAST CANCER SCREENING] Future Scheduled 1999 COLONOSCOPY SCREENING [facility] Test 00:00:00 [code = COLONOSCOPY SCREENING] Future Scheduled 1999 SHINGLES VACCINES (#1) [place] [facility] Test 00:00:00 [code = SHINGLES VACCINES (#1)] Encounters Start End Encounter Admission Attending Care Care Encounter Source Date/Time Date/Time Type Type Clinicians Facility Department ID 2020-02-08 2020-02-08 Urgent Pob1, Acute [facility] [id number] 13:02:37 15:09:17 [facility] [id number] [place] [id number] [place] [id number] [address] [address] Results This patient has no known results.
[2020-05-27 09:26] LABS: Absolute Lymphocytes (CBC) 1.8 K/uL (0.7-4.9); Basophils % 1.1 % (0-1.3); Hematocrit 41.8 % (36.0-45.0); Lymphocytes % 25.1 % (15.3-44.8); MPV 8.4 fL (7.6-11.3); RBC Red Blood Cell Count 4.74 M/uL (3.86-4.86)
[2020-05-27] MEDS ORDERED: ONDANSETRON 4 MG/2 ML VIAL ONE (09:26)
[2020-05-27 09:27] LABS: Protime INR 0.86
--- NOTE | 2020-05-27 09:46 | RAD REPORT ---
EXAM DESCRIPTION: Matt Single View05/27/2020 9:36 am CLINICAL HISTORY: sob COMPARISON: 2019 FINDINGS: The lungs appear clear of acute infiltrate. The heart is normal size IMPRESSION: No acute abnormalities displayed
[2020-05-27 09:49] LABS: Urine Blood TRACE (NEG); Urine Glucose 2+ (NEG); Urine Protein NEGATIVE (NEG)
[2020-05-27 09:52] LABS: ALT/SGPT 23 U/L (12-78); AST/SGOT 15 U/L (15-37); Albumin 3.9 g/dL (3.4-5.0); Alkaline Phosphatase 57 U/L (45-117); BUN Blood Urea Nitrogen 24 mg/dL (7-18); Bicarbonate 25 mmol/L (21-32); Bilirubin Direct 0.1 mg/dL (0-0.2); Bilirubin Total 0.4 mg/dL (0.2-1.0); Glucose Level 143 mg/dL (74-106); Lipase 107 U/L (73-393); NT PRO-BNP 33 pg/mL (<125); Protein, Total 7.9 g/dL (6.4-8.2); Sodium Level 139 mmol/L (136-145); Troponin (Emerg Dept Use Only) < 0.02 ng/mL (0.0-0.045)
[2020-05-27 10:17] LABS: Urine Bacteria <20 /HPF (<20); Urine Culture Reflex Order NOT NEEDED; Urine RBC <5 /HPF (NONE SEEN)
--- NOTE | 2020-05-27 10:46 | ER ---
Nurse's Notes [facility] Name: Kelli Faith Age: 69 yrs Sex: Female : 1950 Arrival Date: 05/27/2020 Time: 08:28 Bed 8 Private MD: Zay Lozano Diagnosis: Nausea with vomiting, unspecified;Diarrhea, unspecified;Other malaise and fatigue Presentation: 05/27 08:30 Chief complaint: Patient states: Nausea, vomiting, and diarrhea started this morning. rb1 Fatigue and SOB started three weeks ago. Pt. was tested negative for COVID 2 months ago. Coronavirus screen: Client denies travel out of the [place] in the last 14 days. diarrhea, fatigue, headache, nausea, shortness of breath, vomiting. Ebola Screen: Patient denies travel to an Ebola-affected area in the 21 days before illness onset. Initial Sepsis Screen: Does the patient meet any 2 criteria? No. Patient's initial sepsis screen is negative. Risk Assessment: Do you want to hurt yourself or someone else? Patient reports no desire to harm self or others. Onset of symptoms was May 27, 2020. 08:30 Method Of Arrival: Ambulatory rb1 08:30 Acuity: KYARA 3 rb1 08:30 Initial Sepsis Screen: Does the patient have a suspected source of infection? No. rb1 Patient's initial sepsis screen is negative. Triage Assessment: 08:30 General: Appears in no apparent distress. comfortable, Behavior is calm, cooperative, rb1 Reports fatigue for x 3 weeks. Denies fever. Pain: Complains of pain in headache. Neuro: Level of Consciousness is awake, alert, obeys commands, Oriented to person, place, time, situation. Cardiovascular: Capillary refill < 3 seconds. Respiratory: Reports shortness of breath cough that is dry, Airway is patent Respiratory effort is even, unlabored, Respiratory pattern is regular, symmetrical. GI: Reports diarrhea, nausea, vomiting, since this morning. : No signs and/or symptoms were reported regarding the genitourinary system. Derm: Skin is pink, warm \T\ dry. Historical: - Allergies: 08:30 No Known Allergies; rb1 - Home Meds: 08:30 losartan 25 mg oral tab 1 tab once daily [Active]; Synjardy oral oral [Active]; rb1 - PMHx: 08:30 Diabetes - NIDDM; Hypertension; mitral valve prolapse; rb1 - PSHx: 08:30 Cholecystectomy; Hysterectomy; neck; Hand; Foot; Breast Reduction; Nose; rb1 - Immunization history:: Adult Immunizations up to date. - Social history:: Smoking status: Patient/guardian denies using. Screenin:30 Abuse screen: Denies threats or abuse. Nutritional screening: decreased appetite . rb1 Tuberculosis screening: No symptoms or risk factors identified. Fall Risk None identified. Assessment: 08:30 General: See triage assessment. rb1 10:32 Reassessment: Patient appears in no apparent distress at this time. No changes from tw2 previously documented assessment. Patient and/or family updated on plan of care and expected duration. Pain level reassessed. Patient is alert, oriented x 3, equal unlabored respirations, skin warm/dry/pink. Vital Signs: 08:38 BP 155 / 66; Pulse 71; Resp 16; Temp 97.8; Pulse Ox 100% on R/A; em1 09:38 BP 137 / 57; Pulse 62; Resp 12; Pulse Ox 100% ; rb1 10:32 BP 132 / 60; Pulse 64; Resp 17; Pulse Ox 99% on R/A; tw2 ED Course: 08:28 Patient arrived in ED. ag5 08:28 Zay Lozano MD is Private Physician. ag5 08:30 Arm band placed on right wrist. rb1 08:30 Patient has correct armband on for positive identification. Placed in gown. Bed in low rb1 position. Call light in reach. Side rails up X 1. Pulse ox on. NIBP on. Warm blanket given. 08:32 Carlos Mejia PA is PHCP. cp 08:32 Carlos Neely MD is Attending Physician. cp 08:32 Jennifer Leslie, CHELSIE is Primary Nurse. rb1 08:44 Triage completed. rb1 09:06 Inserted saline lock: 22 gauge in right antecubital area, using aseptic technique. rb1 Blood collected. 09:37 XRAY Chest (1 view) In Process Unspecified. EDMS 11:02 No provider procedures requiring assistance completed. IV discontinued, intact, rb1 bleeding controlled, No redness/swelling at site. Pressure dressing applied. Administered Medications: 09:36 Not Given (Patient Refused): Zofran (Ondansetron) 4 mg IVP once; over 2 minutes rb1 Outcome: 10:45 Discharge ordered by MD. cp 11:02 Discharged to home ambulatory. rb1 11:02 Condition: stable 11:02 Discharge instructions given to patient, Instructed on discharge instructions, follow up and referral plans. medication usage, Demonstrated understanding of instructions, follow-up care, medications, Prescriptions given X 1. 11:03 Patient left the ED. rb1 Addendum: 05/28/2020 14:39 Addendum: COVID-19 Result: Negative result given to RN to notify pt. Notified pt of s s negative COVID 19 swab results. Pt advised that even with a negative test result they should remain in isolation until symptom free for 3 days without medication. Pt also advised to return to the ED for worsening symptoms. Signatures: Dispatcher [employer] Jus Castellanos em1 Linda Perez, RN RN ss Carlos Mejia, Jennifer Horan cp, RN RN rb1 Darlene Boggs RN RN tw2 Marisela Martin 5
--- NOTE | 2020-05-27 10:46 | EDPHYS ---
Physician Documentation [facility] Name: Kelli Faith Age: 69 yrs Sex: Female : 1950 Arrival Date: 05/27/2020 Time: 08:28 Bed 8 Private MD: Zay Lozano ED Physician Carlos Neely HPI: 05/27 08:50 This 69 yrs old Female presents to ER via Ambulatory with complaints of cp Nausea/Vomiting/Diarrhea, Shortness Of Breath. 08:50 The patient presents to the emergency department with nausea, that is mild, vomiting, 1 cp times today, diarrhea, 2 times today. Onset: The symptoms/episode began/occurred this morning. 08:50 Possible causes: unknown. cp 08:50 Associated signs and symptoms: Pertinent positives: fatigue for past several weeks, cp Pertinent negatives: abdominal pain, anorexia, constipation, dysuria, fever, GI bleeding, chest pain. Severity of symptoms: in the emergency department the symptoms are unchanged despite home interventions. Historical: - Allergies: 08:30 No Known Allergies; rb1 - Home Meds: 08:30 losartan 25 mg oral tab 1 tab once daily [Active]; Synjardy oral oral [Active]; rb1 - PMHx: 08:30 Diabetes - NIDDM; Hypertension; mitral valve prolapse; rb1 - PSHx: 08:30 Cholecystectomy; Hysterectomy; neck; Hand; Foot; Breast Reduction; Nose; rb1 - Immunization history:: Adult Immunizations up to date. - Social history:: Smoking status: Patient/guardian denies using. ROS: 08:55 Constitutional: Positive for fatigue, Negative for body aches, chills, fever, poor PO cp intake. 08:55 Eyes: Negative for injury, pain, redness, and discharge. cp 08:55 ENT: Negative for ear pain, sore throat, difficulty swallowing, difficulty handling secretions. 08:55 Cardiovascular: Negative for chest pain, edema, palpitations. 08:55 Respiratory: Positive for shortness of breath, Negative for cough, wheezing. 08:55 Abdomen/GI: Positive for nausea, vomiting, and diarrhea, Negative for abdominal pain, hematemesis, black/tarry stool, rectal bleeding. 08:55 Back: Negative for radiated pain. 08:55 Neuro: Negative for altered mental status, headache, numbness, syncope, weakness. 08:55 All other systems are negative. Exam: 09:00 Constitutional: The patient appears in no acute distress, alert, awake, cp non-diaphoretic, non-toxic, well developed, well nourished. 09:00 Head/Face: Normocephalic, atraumatic. cp 09:00 Eyes: Periorbital structures: appear normal, Conjunctiva: normal, no exudate, no injection, Lids and lashes: appear normal, bilaterally. 09:00 ENT: External ear(s): are unremarkable, Nose: is normal, Mouth: Lips: moist, Oral mucosa: moist, Posterior pharynx: is normal, airway is patent, no erythema, no exudate. 09:00 Neck: ROM/movement: is normal, is supple, without pain, no range of motions limitations. 09:00 Chest/axilla: Inspection: normal, Palpation: is normal, no crepitus, no tenderness. 09:00 Cardiovascular: Rate: normal, Rhythm: regular, Edema: is not appreciated, JVD: is not appreciated. 09:00 Respiratory: the patient does not display signs of respiratory distress, Respirations: normal, no use of accessory muscles, no retractions, labored breathing, is not present, Breath sounds: are clear throughout, no decreased breath sounds. 09:00 Abdomen/GI: Inspection: abdomen appears normal, Palpation: abdomen is soft and non-tender, in all quadrants. 09:00 Back: pain, is absent, ROM is normal. 09:00 Skin: no rash present. 09:00 Neuro: Orientation: to person, place \T\ time. Mentation: is normal, Motor: moves all fours, strength is normal, Gait: is steady. 09:30 ECG was reviewed by the Attending Physician. cp Vital Signs: 08:38 BP 155 / 66; Pulse 71; Resp 16; Temp 97.8; Pulse Ox 100% on R/A; em1 09:38 BP 137 / 57; Pulse 62; Resp 12; Pulse Ox 100% ; rb1 10:32 BP 132 / 60; Pulse 64; Resp 17; Pulse Ox 99% on R/A; tw2 MDM: 08:34 Patient medically screened. cp 09:00 Differential diagnosis: Nonspecific abd pain, gastritis, appendicitis, diverticulitis, cp viral gastroenteritis, gastroenteritis. 10:44 Data reviewed: vital signs, nurses notes, lab test result(s), EKG, radiologic studies, cp plain films, and as a result, I will discharge patient. 10:44 Test interpretation: by ED physician or midlevel provider: ECG. Counseling: I had a cp detailed discussion with the patient and/or guardian regarding: the historical points, exam findings, and any diagnostic results supporting the discharge/admit diagnosis, lab results, radiology results, to return to the emergency department if symptoms worsen or persist or if there are any questions or concerns that arise at home. 05/27 08:44 Order name: Basic Metabolic Panel 05/27 08:44 Order name: CBC with Diff; Complete Time: 09:41 05/27 09:41 Interpretation: Reviewed. 05/27 08:44 Order name: LFT's; Complete Time: 09:55 05/27 09:55 Interpretation: Normal except: GLOB 4.0; A/G 1.0. 05/27 08:44 Order name: Magnesium; Complete Time: 09:55 05/27 08:44 Order name: NT PRO-BNP; Complete Time: 09:55 05/27 08:44 Order name: PT-INR; Complete Time: 09:41 05/27 08:44 Order name: Troponin (emerg Dept Use Only); Complete Time: 09:55 05/27 09:56 Interpretation: Within normal limits: TROPED < 0.02. 05/27 08:44 Order name: XRAY Chest (1 view); Complete Time: 09:55 05/27 09:56 Interpretation: Report review. 05/27 08:44 Order name: COVID-19 05/27 08:44 Order name: Influenza Screen (a \T\ B); Complete Time: 09:55 05/27 09:56 Interpretation: Reviewed. 05/27 08:44 Order name: Urine Microscopic Only 05/27 08:44 Order name: Lipase; Complete Time: 09:55 05/27 08:44 Order name: Basic Metabolic Panel; Complete Time: 09:55 EDMS 05/27 09:55 Interpretation: Normal except: GLUC 143; BUN 24; GFR 53. 05/27 09:39 Order name: Urine Dipstick--Ancillary (enter results); Complete Time: 09:55 em1 09/15 09:56 Interpretation: Normal except: UGLUC 2+; UBLD TRACE. cp 05/27 08:44 Order name: EKG; Complete Time: 08:45 cp 05/27 08:44 Order name: Cardiac monitoring; Complete Time: 09:16 cp 05/27 08:44 Order name: EKG - Nurse/Tech; Complete Time: 09:37 cp 05/27 08:44 Order name: IV Saline Lock; Complete Time: 09:16 cp 05/27 08:44 Order name: Labs collected and sent; Complete Time: 09:16 cp 05/27 08:44 Order name: O2 Per Protocol; Complete Time: 09:16 cp 05/27 08:44 Order name: O2 Sat Monitoring; Complete Time: 09:16 cp 05/27 08:44 Order name: Urine Dipstick-Ancillary (obtain specimen); Complete Time: 09:36 cp EC:30 Rate is 65 beats/min. Rhythm is regular. NC interval is normal. QRS interval is normal. cp QT interval is normal. Interpreted by me. Reviewed by me. Administered Medications: 09:36 Not Given (Patient Refused): Zofran (Ondansetron) 4 mg IVP once; over 2 minutes rb1 Disposition: 16:01 Co-signature as Attending Physician, Carlos Neely MD I agree with the assessment and [facility] plan of care. Disposition: 05/27/20 10:45 Discharged to Home. Impression: Nausea with vomiting, unspecified, Diarrhea, unspecified, Other malaise and fatigue. - Condition is Stable. - Discharge Instructions: Diarrhea, Adult, Nausea and Vomiting, Adult, Fatigue. - Prescriptions for Zofran 4 mg Oral Tablet - take 1 tablet by ORAL route every 12 hours As needed; 20 tablet. - Medication Reconciliation Form, Thank You Letter, Antibiotic Education, Prescription Opioid Use form. - Follow up: Private Physician; When: 2 - 3 days; Reason: Recheck today's complaints. - Problem is new. - Symptoms have improved. Signatures: Dispatcher [employer] EDCarlos Valdivia MD MD cha Page, Corey, PA PA cp Barber, Rebecca, RN RN rb1 Corrections: (The following items were deleted from the chart) 11:03 10:45 05/27/2020 10:45 Discharged to Home. Impression: Nausea with vomiting, rb1 unspecified; Diarrhea, unspecified; Other malaise and fatigue. Condition is Stable. Forms are Medication Reconciliation Form, Thank You Letter, Antibiotic Education, Prescription Opioid Use. Follow up: Private Physician; When: 2 - 3 days; Reason: Recheck today's complaints. Problem is new. Symptoms have improved. cp 21:32 08:55 Constitutional: Negative for body aches, chills, fever, poor PO intake, cp cp
[2020-05-27 11:09] VITALS: TEMP 97.8
[2020-05-27 11:11] VITALS: BP 132/60; O2SAT 99
--- NOTE | 2020-05-28 05:53 | EKG ---
Test Date: 2020-05-27 Test Time: 09:24:07 Checkerer Hand: BRIDGETTE MEASUREMENT RESULTS: Intervals: Rate: 65 OK: 180 QRSD: 94 QT: 420 QTc: 436 [place]: P: 27 OK: 180 QRS: -50 T: 52 INTERPRETIVE STATEMENTS: Normal sinus rhythm Incomplete right bundle branch block Left anterior fascicular block Voltage criteria for left ventricular hypertrophy Abnormal ECG Compared to ECG 08/12/2019 07:56:36 Incomplete right bundle-branch block now present Left ventricular hypertrophy now present Atrial premature complex(es) no longer present Myocardial infarct finding no longer present Electronically Signed On 05-28-20 05:50:21 CDT by Himanshu Stein
== END 2020-05-27 11:03 | disposition home or self-care (01) ==
LOC: ER 08:26
DX: R19.7 Diarrhea, unspecified (principal); Z20.828 Contact with and (suspected) exposure to other viral communicable diseases; R53.81 Other malaise; R53.83 Other fatigue; I10 Essential (primary) hypertension; E11.9 Type 2 diabetes mellitus without complications; I34.1 Nonrheumatic mitral (valve) prolapse
CPT/HCPCS: 93005; 85025; 80048; 36415; 83735; 85610; 80076; 84484; 83690; 83880; 87804 ×2; 71045; 99284; U0002; 81003; 81015; J2405

== ENCOUNTER 2021-01-09 13:07 | Emergency (ER) | payer OTHER ==
--- OUTSIDE RECORDS SUMMARY | 2021-01-09 13:09 | XMS REPORT | Continuity of Care Document ---
:1950 Author Organization [facility] t Address [address] [place] [address] Care Team Providers Name Role Phone Carmelo Lozano MD Primary Care Physician Lab, Fam Pob I Attending Clinician Unavailable Pob1, Care Clinic Attending Clinician Unavailable Problems [...] Comments Start Date Stop Date Source Natural mother Kidney disease [place] [facility] Natural mother Cancer [place] [facility] Natural mother Clotting disorder Shari ston [facility] Natural mother Diabetes [place] [facility] Natural mother Heart disease [place] [facility] Natural mother Hypertension [place] [facility] Other Diabetes [place] [facility] ist Other Heart disease [place] [facility] Other Hypertension [place] [facility] Other Kidney disease [place] [facility] Natural father Cancer [place] [facility] Natural father Diabetes [place] [facility] Natural father Hypertension [place] [facility] Social History Social Habit Start Date Stop Date Quantity Comments Source Tobacco use and 2016-07-15 2016-07-15 Never used Gavin Solorio [facility]ist exposure 00:00:00 00:00:00 Alcohol intake 2016-07-15 2016-07-15 Current [place] [facility] 00:00:00 00:00:00 non-drinker of alcohol (finding) Sex Ass[birth year] [place] Osmin [facility] 00:00:00 00:00:00 Smoking Status Start Date Stop Date Source Never smoker [place] [facility] t Medications Ordered Filled Start Stop Current Ordering Indication Dosage Frequency Signature Comments Components Source Medication Medication Date Date Medication? Clinician (SIG) Name Name gabapentin Yes 300mg [id number] Take 300 [place] (NEURONTIN) 1 [id number] mg by M ethodi 300 MG 14:50: 3D mouth 3 st capsule 58 (three) times a day. FARXIGA 5 2015-09 Yes [place] mg tablet 2-29 Methodi 00:00: st 00 metFORMIN 2015-09 Yes TK 1 T PO Shari stopalomo (GLUCOPHAGE 0-05 TWICE A Metho di ) 1,000 mg 00:00: DAY st tablet 00 pentoxifyll Yes TK 1 T PO H [place] ine 8-15 TID Methodi (TRENTal) 00:00: st 400 mg CR 00 tablet escitalopra Yes TK 1 T PO H ouisela m (LEXAPRO) 8-14 QD. Methodi 10 MG [...] Planned Date Details Comments Source Future Scheduled 2021-04-12 INFLUENZA VACCINE Loraine culver [facility] Test 00:00:00 [code = INFLUENZA VACCINE] Future Scheduled 2014 65+ PNEUMOCOCCAL [place] [facility] Test 00:00:00 VACCINE (1 of 1 - PPSV23) [code = 65+ PNEUMOCOCCAL VACCINE (1 of 1 - PPSV23)] Future Scheduled 1999 BREAST CANCER [facility] thodist Test 00:00:00 SCREENING [code = BREAST CANCER SCREENING] Future Scheduled 1999 COLONOSCOPY SCREENING kaelyn [facility] Test 00:00:00 [code = COLONOSCOPY SCREENING] Future Scheduled 1999 SHINGLES VACCINES (#1) H fifi [facility] Test 00:00:00 [code = SHINGLES VACCINES (#1)] Future Scheduled 1965 COVID-19 VACCINE (1) Shari weiss [facility] Test 00:00:00 [code = COVID-19 VACCINE (1)] Encounters Start End Encounter Admission Attending Care Care Encounter Source Date/Time Date/Time Type Type Clinicians Facility Department ID 2020-10-22 2020-10-22 Laboratory Lab, Adc [facility] [id number] 17:46:43 18:06:43 Only Fam Pob I Health [id number] [place] [id number] Professio [phone] [address]al [address] 2020-02-08 2020-02-08 Urgent Pob1, Acute [facility] [id number] 13:02:37 15:09:17 [facility] [id number] [place] [id number] Professio [phone] nal [address] Results This patient has no known results.
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
--- NOTE | 2021-01-09 14:29 | RAD REPORT ---
EXAM DESCRIPTION: RADSacrum And Coccyx01/09/2021 2:06 pm CLINICAL HISTORY: Back pain FINDINGS: No fracture is seen
[2021-01-09 14:59] VITALS: TEMP 98; O2SAT 99
[2021-01-09 15:00] VITALS: BP 151/71
== END 2021-01-09 14:51 | disposition home or self-care (01) ==
LOC: ER 13:07
DX: M54.5 Low back pain (principal); V89.2XXA Person injured in unspecified motor-vehicle accident, traffic, initial encounter; E11.9 Type 2 diabetes mellitus without complications; I10 Essential (primary) hypertension; I34.1 Nonrheumatic mitral (valve) prolapse; Z79.84 Long term (current) use of oral hypoglycemic drugs
CPT/HCPCS: 72131; 72220; 99283

== ENCOUNTER 2021-05-19 07:36 | Emergency (ER) | payer OTHER ==
--- OUTSIDE RECORDS SUMMARY | 2021-05-19 07:38 | XMS REPORT | Continuity of Care Document ---
:1950 Author Organization [facility] t Address [address] [place] [address] Care Team Providers Name Role Phone Pcp, Does Not Have A Primary Care Physician Only, Db Test Attending Clinician Unavailable Roxanne BOBBIN HANDLER Attending Clinician Lab, Fam Pob I Attending Clinician Unavailable Pob1, Care Clinic Attending Clinician Unavailable Payers Payer Name Policy Type Policy Number Effective Date Expiration Date S ource Problems Condition Condition Condition Status Onset Resolution Last Treating Co mments Source Name Details Category Date Date Treatment Clinician Date Essential Essential Disease Active 2019-0 Uni vers hypertensi hypertensi 5-29 it y of on on 00:00: [place] [address] Medical Branch Elbow mass Elbow mass Disease Active 2017-0 M ethodi 09-17 st 00:00: Hospita 00 l Allergies, Adverse Reactions, Alerts This patient has no known allergies or adverse reactions. Family History Family Member Diagnosis Comments Start Date Stop Date Source Natural mother Kidney disease Method [facility] Natural mother Clotting disorder [facility] Diabetes [facility] Natural mother Heart disease [facility] Natural mother Hypertension [facility] Other [facility] Other Kidney disease [facility] father Cancer [facility] Diabetes [facility] father Hypertension [facility] Social History Social Habit Start Date Stop Date Quantity Comments Source Exposure to Not sure [facility] SARS-CoV-2 [facility] (event[facility] Tobacco use and 2016-07-15 2016-07-15 Never used [facility] exposure 00:00:00 00:00:00 Alcohol intake 2016-07-15 2016-07-15 Current [facility] 00:00:00 00:00:00 non-drinker of alcohol (finding) Sex Ass[birth year] [facility] 00:00:00 00:00:00 Smoking Status Start Date Stop Date Source Never smoker [facility] Medications Ordered Filled Start Stop Current Ordering Indication Dosage Frequency Signature Comments Components Source Medication Medication Date Date Medication? Clinician (SIG) Name Name pregabalin Yes Take by Uni vers (LYRICA 5-29 mouth. ity of ORAL) 18:46: [place] [address] Medical Branch metFORMIN Yes 1000mg Take 1,000 Univers 1,000 mg 5-29 mg by ity of tablet 18:37: mouth 2 [place] [address] (two) Medical times Branch daily with meals. losartan 50 Yes 50mg Take 50 mg Univers mg tablet 2-12 by mouth ity of 15:24: daily. [address] lansoprazol Yes Take by Un murray e (PREVACID 2-12 mouth. ity of ORAL) 15:24: [address] gabapentin Yes 300mg [id number] Take 300 Method[facility] (NEURONTIN) 1-06 [id number] mg by s t 300 MG 20:50: 3D mouth 3 Hospita capsule 58 (three) l times a day. FARXIGA 5 2015-09 Yes Methodi mg tablet 2-29 st 00:00: Hospita 00 l metFORMIN 2015-09 Yes TK 1 T PO Met hodi (GLUCOPHAGE 0-[address] ) 1,000 mg 00:00: DAY Hospita tablet 00 l pentoxifyll Yes TK 1 T PO M ethodi ine 8-[address] (TRENTal) 00:00: Hospita 400 mg CR 00 l tablet escitalopra Yes TK 1 T PO M ethodi m (LEXAPRO) 8-[address] 10 MG 00:00: Hospita tablet 00 l losartan Yes TK 1 T PO Meth spencer (COZAAR) 50 8-[address] MG tablet 00:00: Hospita 00 l terbinafine Yes TK 1 T PO M ethodi HCl 5-[address] (LamiSIL) 00:00: Hospita 250 mg 00 l tablet Procedures This patient has no known procedures. Plan of Care Planned Activity Planned Date Details Comments Source Future Scheduled Test COVID-19 VACCINE (1) [facility] [code = COVID-19 VACCINE (1)] Future Scheduled Test BREAST CANCER SCREENING [facility] [code = BREAST CANCER SCREENING] Future Scheduled Test COLONOSCOPY SCREENING [facility] [code = COLONOSCOPY SCREENING] Future Scheduled Test SHINGLES VACCINES (#1) [facility] [code = SHINGLES VACCINES (#1)] Future Scheduled Test 65+ PNEUMOCO[address]AL [facility] VACCINE (1 of 1 - PPSV23) [code = 65+ PNEUMOCOCCAL VACCINE (1 of 1 - PPSV23)] Future Scheduled Test INFLUENZA VACCINE [code [facility] = INFLUENZA VACCINE] Encounters Start End Encounter Admission Attending Care Care Encounter Source Date/Time Date/Time Type Type Clinicians Facility Department ID 2021-05-13 2021-05-13 Laboratory Only, Ang Db Test [facility] 1.2.8 [id number] Univers 13:58:34 14:08:34 Only Roxanne, [facility] [id number] [facility]y of [place] [id number] Alan as Robin?Blea [id number] [address] Medical Office Building 2020-10-22 2020-10-22 Laboratory Lab, [facility] [id number] 17:46:43 18:06:43 Only Fam Pob I Health [id number] [place] [id number] Professio [phone] nal [address] 2020-02-08 2020-02-08 Urgent Pob1, Acute [facility] [id number] 13:02:37 15:09:17 [facility] [id number] [place] [id number] Professio [phone] nal [address] One Results This patient has no known results.
--- NOTE | 2021-05-19 08:54 | EDPHYS ---
Physician Documentation [facility] Name: Kelli Faith Age: 70 yrs Sex: Female : 1950 Arrival Date: 05/19/2021 Time: 07:40 Bed 19 Private MD: ED Physician Carlos Neely HPI: 05/19 08:59 This 70 yrs old Female presents to ER via Ambulatory with complaints of Poss kb Shingles. 08:59 The patient's rash thought to be caused by an unknown cause. The rash is located on the kb right side of forehead and right taoism. The rash can be described as erythematous, vesicular. Onset: The symptoms/episode began/occurred 5 day(s) ago. Associated signs and symptoms: Pertinent positives: burning sensation, itching, Pain. Severity of symptoms: At their worst the symptoms were mild in the emergency department the symptoms are unchanged. The patient has not experienced similar symptoms in the past. The patient has not recently seen a physician. Historical: - Allergies: 07:47 No Known Allergies; ll1 - PMHx: 07:47 Diabetes - NIDDM; Hypertension; mitral valve prolapse; ll1 - PSHx: 07:47 None; ll1 - Immunization history:: Client reports receiving the 2nd dose of the Covid vaccine, Flu vaccine is not up to date. - Social history:: Smoking status: Patient denies any tobacco usage or history of. ROS: 08:58 Constitutional: Negative for fever, chills, and weight loss. kb 08:58 Skin: Positive for rash, of the right side of forehead and right taoism. 08:58 All other systems are negative. Exam: 08:56 Constitutional: This is a well developed, well nourished patient who is awake, alert, kb and in no acute distress. Head/Face: Normocephalic, atraumatic. Eyes: Pupils equal round and reactive to light, extra-ocular motions intact. Lids and lashes normal. Conjunctiva and sclera are non-icteric and not injected. Cornea within normal limits. Periorbital areas with no swelling, redness, or edema. ENT: Moist Mucous membranes Respiratory: Respirations even and unlabored. No increased work of breathing, no retractions or nasal flaring. MS/ Extremity: Pulses equal, no cyanosis. Neurovascular intact. Full, normal range of motion. Neuro: Awake and alert, GCS 15, oriented to person, place, time, and situation. Moves all extremities. Normal gait. Psych: Awake, alert, with orientation to person, place and time. Behavior, mood, and affect are within normal limits. 08:56 Eyes: Corneas: a fluorescein strip employed to appreciate the findings. 08:58 Skin: rash a mild rash is noted, consistent with zoster, on the right side of forehead kb and right taoism. Vital Signs: 07:45 BP 173 / 67; Pulse 64; Resp 17; Weight 78.93 kg; Height 5 ft. 10 in. (177.80 cm); Pain ll1 7/10; 07:51 BP 171 / 72; Pulse 66; Resp 18; Temp 97.8; Pulse Ox 100% ; Weight 78.02 kg; Height 5 ch5 ft. 10 in. (177.80 cm); Pain 7/10; 09:04 BP 132 / 83; Pulse 83; Resp 18; Pulse Ox 99% ; Pain 4/10; ch5 07:51 Body Mass Index 24.68 (78.02 kg, 177.80 cm) ch5 Visual Acuity: 07:59 Left Eye Visual acuity 20/25, ; Right Eye Visual acuity 20/30, ; Both Eyes Visual ch5 acuity 20/20; With Lenses; MDM: 07:44 Patient medically screened. kb 07:44 Patient medically screened. tyrese 08:56 Data reviewed: vital signs, nurses notes. Data interpreted: Pulse oximetry: on room air kb is 100 %. Interpretation: normal. Counseling: I had a detailed discussion with the patient and/or guardian regarding: the historical points, exam findings, and any diagnostic results supporting the discharge/admit diagnosis, the need for outpatient follow up, an opthalmologist, a family practitioner, to return to the emergency department if symptoms worsen or persist or if there are any questions or concerns that arise at home. ED course: No dendritic lesions noted on eye exam. 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 05/19 08:18 Order name: Eye Tray; Complete Time: 08:42 kb 05/19 08:18 Order name: Fluoresene Opth strip; Complete Time: 08:42 kb 05/19 08:18 Order name: Visual Acuity; Complete Time: 08:32 kb Administered Medications: No medications were administered Disposition: 05/20 08:08 Co-signature as Attending Physician, Carlos Neely MD I agree with the assessment and tyrese plan of care. Disposition Summary: 05/19/21 08:54 Discharge Ordered Location: Home kb Condition: Stable kb Diagnosis - Zoster without complications kb Followup: kb - With: Emergency Department - When: As needed - Reason: Worsening of condition Followup: kb - With: Private Physician - When: 2 - 3 days - Reason: Recheck today's complaints, Continuance of care, Re-evaluation by your physician Discharge Instructions: - Discharge Summary Sheet kb - Shingles, [id number] kb Forms: - Medication Reconciliation Form kb - Thank You Letter kb - Antibiotic Education kb - Prescription Opioid Use kb Prescriptions: - Valtrex 1 gram Oral tablet - take 1 tablet by ORAL route 3 times per day for 7 days; 21 tablet; Refills: 0, kb Product Selection Permitted Signatures: Nena Gastelum, JERONIMO-C JERONIMO-Carlos Waldrop MD MD cha Lewis, Lynsay, RN RN ll1 Corrections: (The following items were deleted from the chart) 05/19 08:59 08:56 Constitutional: This is a well developed, well nourished patient who is awake, kb alert, and in no acute distress. Head/Face: Normocephalic, atraumatic. Eyes: Pupils equal round and reactive to light, extra-ocular motions intact. Lids and lashes normal. Conjunctiva and sclera are non-icteric and not injected. Cornea within normal limits. Periorbital areas with no swelling, redness, or edema. ENT: Moist Mucous membranes Respiratory: Respirations even and unlabored. No increased work of breathing, no retractions or nasal flaring. Skin: Warm, dry with normal turgor. Normal color. MS/ Extremity: Pulses equal, no cyanosis. Neurovascular intact. Full, normal range of motion. Neuro: Awake and alert, GCS 15, oriented to person, place, time, and situation. Moves all extremities. Normal gait. Psych: Awake, alert, with orientation to person, place and time. Behavior, mood, and affect are within normal limits. kb
--- NOTE | 2021-05-19 08:54 | ER ---
Nurse's Notes [facility] Name: Kelli Faith Age: 70 yrs Sex: Female : 1950 Arrival Date: 05/19/2021 Time: 07:40 Bed 19 Private MD: Diagnosis: Zoster without complications Presentation: 05/19 07:45 Chief complaint: Patient states: Painful rash to R side of face and head since Tuesday. ll1 Believes she has shingles. Fever off/on. Coronavirus screen: Vaccine status: Patient reports receiving the 2nd dose of the covid vaccine. Client denies travel out of the [place] in the last 14 days. At this time, the client does not indicate any symptoms associated with coronavirus-19. Ebola Screen: Patient denies travel to an Ebola-affected area in the 21 days before illness onset. Initial Sepsis Screen: Does the patient meet any 2 criteria? No. Patient's initial sepsis screen is negative. Does the patient have a suspected source of infection? Yes: Skin breakdown/wound. Risk Assessment: Do you want to hurt yourself or someone else? Patient reports no desire to harm self or others. Onset of symptoms was May 15, 2021. 07:45 Method Of Arrival: Ambulatory ll1 07:45 Acuity: KYARA 4 ll1 Triage Assessment: 07:47 General: Appears in no apparent distress. Behavior is calm, cooperative, appropriate ll1 for age. Pain: Complains of pain in R side of head and face Pain currently is 7 out of 10 on a pain scale. Quality of pain is described as aching. Neuro: Level of Consciousness is awake, alert, obeys commands, Oriented to person, place, time, situation, Appropriate for age Moves all extremities. Full function Gait is steady, Speech is normal, Reports headache. Cardiovascular: No deficits noted. Respiratory: No deficits noted. Derm: Rash noted that is red, raised, Reports rash to right side of head and face. Historical: - Allergies: 07:47 No Known Allergies; ll1 - PMHx: 07:47 Diabetes - NIDDM; Hypertension; mitral valve prolapse; ll1 - PSHx: 07:47 None; ll1 - Immunization history:: Client reports receiving the 2nd dose of the Covid vaccine, Flu vaccine is not up to date. - Social history:: Smoking status: Patient denies any tobacco usage or history of. Screenin:51 Abuse screen: Denies threats or abuse. Denies injuries from another. Nutritional ch5 screening: No deficits noted. Tuberculosis screening: No symptoms or risk factors identified. Fall Risk None identified. Assessment: 07:51 Reassessment: No changes from previously documented assessment. Pain: Complains of pain ch5 in forehead, right eye and right baptist. Vital Signs: 07:45 BP 173 / 67; Pulse 64; Resp 17; Weight 78.93 kg; Height 5 ft. 10 in. (177.80 cm); Pain ll1 7/10; 07:51 BP 171 / 72; Pulse 66; Resp 18; Temp 97.8; Pulse Ox 100% ; Weight 78.02 kg; Height 5 ch5 ft. 10 in. (177.80 cm); Pain 7/10; 09:04 BP 132 / 83; Pulse 83; Resp 18; Pulse Ox 99% ; Pain 4/10; ch5 07:51 Body Mass Index 24.68 (78.02 kg, 177.80 cm) ch5 Visual Acuity: 07:59 Left Eye Visual acuity 20/25, ; Right Eye Visual acuity 20/30, ; Both Eyes Visual ch5 acuity 20/20; With Lenses; ED Course: 07:40 Patient arrived in ED. ds1 07:43 Nena [facility]astelum [facility]C [facility] kb 07:43 Carlos Neely MD is Attending Physician. kb 07:47 Triage completed. ll1 07:47 Arm band placed on Patient placed in an exam room, on a stretcher. ll1 07:49 Leonel Bowie RN is Primary Nurse. ch5 07:51 Bed in low position. Call light in reach. Side rails up X 1. ch5 07:51 No provider procedures requiring assistance completed. ch5 09:05 Patient did not have IV access during this emergency room visit. ch5 Administered Medications: No medications were administered Outcome: 08:54 Discharge ordered by . kb 09:05 Discharged to home ambulatory. ch5 09:05 Condition: improved 09:05 Discharge instructions given to patient, Prescriptions given X 1. 09:06 Patient left the ED. 5 Signatures: Nena Gastelum FNP-C FNP-Ckb Sanford, Demi ds1 Mariaelena Waters RN RN ll1 Leonel Bowie, RN RN ch5
[2021-05-19] MEDS ORDERED: TETRACAINE HCL 0.5% 4ML OPTH ONE (08:58)
[2021-05-19] MEDS ORDERED: FLUORESCEIN SODIUM 1 MG/WRAP ONE (09:06)
[2021-05-19 09:12] VITALS: TEMP 97.8
[2021-05-19 09:13] VITALS: BP 132/83; O2SAT 99
== END 2021-05-19 09:06 | disposition home or self-care (01) ==
LOC: ER 07:36
DX: B02.9 Zoster without complications (principal); I10 Essential (primary) hypertension
CPT/HCPCS: 99282

== ENCOUNTER 2023-07-13 06:53 | Emergency (ER) | payer OTHER ==
--- OUTSIDE RECORDS SUMMARY | 2023-07-13 06:56 | XMS REPORT | Continuity of Care Document ---
:1950 Author Organization [facility] t Address [address] [facility] [address] [place] [address] Care Team Providers Name Role Phone Pcp, Patient Does Not Have A Primary Care Physician [phone] Only, Ang Db Test Attending Clinician Unavailable Bertha Donaldson Attending Clinician BERTHA WILCOX Attending Clinician Unavailable Lab, Adc Fam Pob I Attending Clinician Unavailable ROCK DANIEL Attending Clinician Unavailable Pob1, Acute Care Clinic Attending Clinician Unavailable Payers Payer Name Policy Type Policy Number Effective Date Expiration Date Delaney MOJICA [id number] 2014 VALERIE 00:00:00 Problems Condition Condition Condition Status Onset Resolution Last Treating Co mments Source Name Details Category Date Date Treatment Clinician Date Essential Essential Disease Active Uni vers hypertensi hypertensi 5-29 it y of on on 00:00: [address] Elbow mass Elbow mass Disease Active 0 M ethodi 09-17 00:00: Hospita 00 l Elbow mass Elbow mass Disease Active 0 M ethodi 09-17 00:00: Hospita 00 l Allergies, Adverse Reactions, Alerts Allergy Allergy Status Severity Reaction(s) Onset Inactive Treating Comm ents Source Name Type Date Date Clinician NO KNOWN Drug Active Univers ALLERGIE Class ity of S [facility] Family History Family Member Diagnosis Comments Start Date Stop Date Source Natural father Cancer [facility] Natural [facility] Diabetes [facility] Natural [facility] Hypertension [facility] Other [facility] Hy[facility] Other Kidney disease [facility] Natural mother Cancer [facility] Natural mother Clotting disorder Met [facility] Natural mother Diabetes [facility] Natural mother Heart disease [facility] Natural mother [facility]pertension [facility] Natural mother [facility] Social History Social Habit Start Date Stop Date Quantity Comments Source Gender identity [facility] Sexual orientation [facility] Exposure to Not sure [facility]-CoV-2 (event) [facility] Tobacco use and 2020-02-08 2020-02-08 Never used Universit y of exposure 00:00:00 00:00:00 [facility] History of Social 2017-03-14 2017-03-[address] function 00:00:00 00:00:00 Hospital Alcohol intake 2016-07-15 2016-07-15 Current [facility] 00:00:00 00:00:00 non-drinker of Hospital alcohol (finding) Sex Assigned At [birth year] [facility] 00:[facility] 00[facility]00 [facility] Smoking Status Start Date Stop Date Source Never smoker [facility] Medications Ordered Filled Start Stop Current Ordering Indication Dosage Frequency Signature Comments Components Source Medication Medication Date Date Medication? Clinician (SIG) Name Name pregabalin Yes Take by [facility] ers (LYRICA 5-29 mouth. ity of ORAL) 18:46: [address] metFORMIN Yes 1000mg Take 1,000 Univers 1,000 mg 5-29 mg by ity of tablet 18:37: mouth [address] [place] [address] (two) Medical times Branch daily with meals. losartan 50 Yes 50mg Take 50 mg Univers mg tablet 2-12 by mouth ity of 15:24: daily. [address] lansoprazol Yes Take by Uni vers e (PREVACID 2-12 mouth. ity of ORAL) 15:24: [address] gabapentin Yes 300mg [id number] Take 300 Method[facility] (NEURONTIN) 1-06 [id number] mg by s t 300 MG 20:50: 3D mouth 3 Hospita capsule 58 (three) l times a day. gabapentin Yes 300mg [id number] Take 300 [facility] (NEURONTIN) 1-06 [id number] mg by s t 300 MG 14:50: 3D mouth 3 Hospita capsule 58 (three) l times a day. gabapentin Yes 300mg [id number] Take 300 [facility] (NEURONTIN) 1- [id number] mg by s t 300 MG 14:50: 3D mouth 3 Hospita capsule 58 (three) l times a day. [place] 2015-09 Yes [facility] mg tablet [facility] 00:00: Hospita 00 l [facility] 2015-09 Yes Methodi mg tablet [facility] 00:00: Hospita 00 l [facility] 2015-09 Yes Methodi mg tablet st 00:00: Hospita 00 l metFORMIN 2015-09 Yes TK 1 T PO Met hodi (GLUCOPHAGE 0-[address] ) 1,000 mg 00:00: DAY Hospita tablet 00 l metFORMIN 2015-09 Yes TK 1 T PO Met hodi (GLUCOPHAGE 0-[address] ) 1,000 mg 00:00: DAY Hospita tablet 00 l metFORMIN 2015-09 Yes TK 1 T PO Met hodi (GLUCOPHAGE 0-[address] ) 1,000 mg 00:00: DAY Hospita tablet 00 l pentoxifyll Yes TK 1 T PO M ethodi ine 8-[address] (TRENTal) 00:00: Hospita 400 mg CR 00 l tablet pentoxifyll Yes TK 1 T PO M ethodi ine 8-[address] (TRENTal) 00:00: Hospita 400 mg CR 00 l tablet pentoxifyll Yes TK 1 T PO M ethodi ine 8-[address] (TRENTal) 00:00: Hospita 400 mg CR 00 l tablet escitalopra Yes TK 1 T PO M ethodi m (LEXAPRO) 8-[address] 10 MG 00:00: Hospita tablet 00 l escitalopra Yes TK 1 T PO M ethodi m (LEXAPRO) 8-[address] 10 MG 00:00: Hospita tablet 00 l escitalopra Yes TK 1 T PO M ethodi m (LEXAPRO) 8-[address] 10 MG 00:00: Hospita tablet 00 l losartan Yes TK 1 T PO Meth spencer (COZAAR) 50 8-[address] MG tablet 00:00: Hospita 00 l losartan 2016-0 Yes TK 1 T PO Meth spencer (COZAAR) 50 8-[address] MG tablet 00:00: Hospita 00 l losartan 2016-0 Yes TK 1 T PO Meth spencer (COZAAR) 50 8-[address] MG tablet 00:00: Hospita 00 l terbinafine 2016-0 Yes TK 1 T PO M ethodi HCl 5-[address] (LamiSIL) 00:00: Hospita 250 mg 00 l tablet terbinafine 2016-0 Yes TK 1 T PO M ethodi HCl 5-[address] (LamiSIL) 00:00: Hospita 250 mg 00 l tablet terbinafine 2016-0 Yes TK 1 T PO M ethodi HCl 5-[address] (LamiSIL) 00:00: Hospita 250 mg 00 l tablet Procedures This patient has no known procedures. Plan of Care Planned Activity Planned Date Details Comments Source Future Scheduled 2023-06-14 INFLUENZA VACCINE (#1) [facility] Test 10:47:20 [code = INFLUENZA VACCINE (#1)] Future Scheduled 2023-06-14 Screening for [facility] Test 10:47:20 malignant neoplasm of colon (procedure) [code = 343628933] Future Scheduled 2023-06-14 Screening for [facility] Test 10:47:20 malignant neoplasm of colon (procedure) [code = 260705131] Future Scheduled 2023-06-14 Screening for [facility] Test 10:47:20 malignant neoplasm of colon (procedure) [code = 246655476] Future Scheduled 2023-06-14 COVID-19 VACCINE (#1) [facility] Test 10:47:20 [code = COVID-19 VACCINE (#1)] Future Scheduled 2023-06-14 BREAST CANCER [facility] Test 10:47:20 SCREENING [code = BREAST CANCER SCREENING] Future Scheduled 2023-06-14 Screening for [facility] Test 10:47:20 malignant neoplasm of colon (procedure) [code = 460522042] Future Scheduled 2023-06-14 Screening for [facility] Test 10:47:20 malignant neoplasm of colon (procedure) [code = 394157909] Future Scheduled 2023-06-14 SHINGLES VACCINES (1 Met [facility] Test 10:47:20 of 2) [code = SHINGLES VACCINES (1 of 2)] Future Scheduled 2023-06-14 65+ [facility]OCOCC[address] [facility] Test 10:47:20 VACCINE (1 - PCV) [code = 65+ PNEUMOCOCCAL VACCINE (1 - PCV)] Future Scheduled 2023-03-23 [facility] Test 10:58:29 malignant neoplasm of colon (procedure) [code = 649922938] Future Scheduled 2023-03-23 [facility] Test 10:58:29 malignant neoplasm of colon (procedure) [code = 727194020] Future Scheduled 2023-03-23 [facility] Test 10:58:29 malignant neoplasm of colon (procedure) [code = 475366559] Future Scheduled 2023-03-23 COVID-19 VACCINE (#1) [facility] Test 10:58:29 [code = COVID-19 VACCINE (#1)] Future Scheduled 2023-03-23 BREAST CANCER [facility] Test 10:58:29 SCREENING [code = BREAST CANCER SCREENING] Future Scheduled 2023-03-23 [facility] for [facility] Test 10:58:29 malignant neoplasm of colon (procedure) [code = 025083418] Future Scheduled 2023-03-23 [facility] for [facility] Test 10:58:29 malignant neoplasm of colon (procedure) [code = 327151859] Future Scheduled 2023-03-23 SHINGLES VACCINES (1 Met [facility] Test 10:58:29 of 2) [code = SHINGLES VACCINES (1 of 2)] Future Scheduled 2023-03-23 65+ [facility]OCOCCAL [facility] Test 10:58:29 VACCINE (1 - PCV) [code = 65+ PNEUMOCOCCAL VACCINE (1 - PCV)] Future Scheduled 2023-03-23 INFLUENZA VACCINE [facility] Test 10:58:29 [code = INFLUENZA VACCINE] Future Scheduled COVID-19 VACCINE (1) Met [facility] Test [code = COVID-19 VACCINE (1)] Future Scheduled BREAST CANCER [facility] Test SCREENING [code = BREAST CANCER SCREENING] Future Scheduled COLONOSCOPY SCREENING [facility] Test [code = COLONOSCOPY SCREENING] Future Scheduled SHINGLES [facility]ACCINES (#1[facility] [code = SHINGLES VACCINES (#1)] Future Scheduled 65+ [facility]OCOCCAL [facility] Test VACCINE (1 of 1 - PPSV23) [code = 65+ PNEUMOCOCCAL VACCINE (1 of 1 - PPSV23)] Future Scheduled INFLUENZA [facility]ACCINE [facility] Test [code = INFLUENZA VACCINE] Encounters Start End Encounter Admission Attending Care Care Encounter Source Date/Time Date/Time Type Type Clinicians Facility Department ID 2023-06-14 2023-06-14 Outpatient [facility] 10:47:14 10:47:14 [id number] F Gael 2023-03-23 2023-03-23 Outpatient [facility] 10:58:26 10:58:26 [id number] F Hume 2023-01-04 2023-01-04 Outpatient [facility] 10:26:00 10:26:00 [id number] F Hume 2021-05-13 2021-05-13 Laboratory Only, Ang Db Test [facility] 1.2.8 [id number] Univers 13:58:34 14:08:34 [facility] [id number] [facility] [place] [id number] Alan as Robin?Blea [id number] [address] Medical Office Building 2021-05-13 2021-05-13 Outpatient Jazlyn WILCOX [facility] [id number] Univers 13:55:00 13:55:00 BERTHA raymondkerri perico alden [facility] 2020-10-22 2020-10-22 Laboratory Lab, [facility] [id number] 17:46:43 18:06:43 Only Fam Pob I Health 350..13.10 [place] [id number] Professio [phone] nal [address] One 2020-10-22 2020-10-22 Outpatient R FREDY [facility] [id number] Univers 18:00:00 18:00:[address] [facility] 2020-02-08 2020-02-08 Urgent Pob1, Acute [facility] [id number] 13:02:37 15:09:17 [facility] 350..13.10 [place] [id number] Professio [phone] nal 0[address] Office [address] One 2020-02-08 2020-02-08 Outpatient R [facility] [id number] Univers 13:20:00 13:20:00 [facility] Results This patient has no known results.
[2023-07-13] MEDS ORDERED: CEFTRIAXONE 1000 MG/VIAL ONE (07:52)
[2023-07-13] MEDS ORDERED: NA CHLORIDE 0.9% 50 ML ONE (07:53)
[2023-07-13 08:00] LABS: Absolute Lymphocytes (CBC) 1.7 K/uL (0.7-4.9); Hematocrit 38.5 % (36.0-45.0); Lymphocytes % 14.3 % (15.3-44.8); MCV 90.5 fL (80-100); MPV 7.9 fL (7.6-11.3); Platelets 231 thou/uL (152-406); RBC Red Blood Cell Count 4.25 M/uL (3.86-4.86)
[2023-07-13 08:48] LABS: Bilirubin Total 0.6 mg/dL (0.2-1.0); Potassium 3.7 mEq/L (3.5-5.1); Protein, Total 6.7 g/dL (6.4-8.2); Thyroid Stimulating Hormone 1.52 uIU/mL (0.358-3.740)
[2023-07-13] MEDS ORDERED: NA CHLORIDE 0.9% 1,000 ML ONE (08:51)
[2023-07-13 09:49] LABS: Specific Gravity 1.025 (1.005-1.030); Urine Bacteria None Seen /HPF (<20); Urine Bilirubin NEGATIVE (Negative); Urine Blood Negative (Negative); Urine Clarity Turbid (Clear); Urine Color Yellow (Yellow); Urine Glucose NEGATIVE (Negative); Urine Mucus Slight /HPF (None Seen); Urine Protein NEGATIVE (Negative); Urine RBC <5 /HPF (None Seen); Urine Urobilinogen Normal (Normal)
--- NOTE | 2023-07-13 10:11 | ER ---
Nurse's Notes [facility] Name: Kelli Faith Age: 72 yrs Sex: Female : 1950 Arrival Date: 07/13/2023 Time: 06:53 Bed 2 Private MD: Diagnosis: Acute serous otitis media, right ear;Urinary frequency;Suprapubic abdominal pain Presentation: 07/13 07:21 Chief complaint: Patient states: Lower abdominal pain and frequent urination for 2 ll1 days. Coronavirus screen: Vaccine status: Patient reports receiving the 2nd dose of the covid vaccine. Client denies travel out of the [place] in the last 14 days. At this time, the client does not indicate any symptoms associated with coronavirus-19. Ebola Screen: Patient denies travel to an Ebola-affected area in the 21 days before illness onset. Initial Sepsis Screen: Does the patient meet any 2 criteria? No. Patient's initial sepsis screen is negative. Does the patient have a suspected source of infection? Yes: Dysuria/Frequency/Urgency/UTI. Risk Assessment: Do you want to hurt yourself or someone else? Patient reports no desire to harm self or others. Onset of symptoms was July 12, 2023. 07:21 Method Of Arrival: Ambulatory ll1 07:21 Acuity: KYARA 3 ll1 Triage Assessment: 07:23 General: Appears uncomfortable, Behavior is calm, cooperative, appropriate for age. ll1 Pain: Complains of pain in abdomen Pain currently is 8 out of 10 on a pain scale. GI: Reports lower abdominal pain, diarrhea. : Reports urinary frequency. Historical: - Allergies: 07:21 No Known Allergies; ll1 - PMHx: 07:21 Hypertension; Diabetes - NIDDM; mitral valve prolapse; ll1 - Immunization history:: Adult Immunizations up to date. - Social history:: Smoking status: Patient denies any tobacco usage or history of. - Family history:: not pertinent. Screenin:[facility] ED Fall Risk Assessment (Adult) History of falling in the last 3 months, mb9 including since admission No falls in past 3 months (0 pts) Confusion or Disorientation No (0 pts) Intoxicated or Sedated No (0 pts) Impaired Gait No (0 pts) Mobility Assist Device Used No (0 pt) Altered Elimination No (0 pt) Score/Fall Risk Level 0 - 2 = Low Risk Oriented to surroundings, Maintained a safe environment, Educated pt \T\ family on fall prevention, incl call for assistance when getting out of bed. Abuse screen: Denies threats or abuse. Nutritional screening: No deficits noted. Tuberculosis screening: No symptoms or risk factors identified. Assessment: 07:59 General: Appears in no apparent distress. Behavior is calm, cooperative. Pain: mb9 Complains of pain in pelvis Pain does not radiate. Quality of pain is described as heavy. Neuro: No deficits noted. Sebastian Agitation-Sedation Scale (RASS): 0 - Alert and Calm Level of Consciousness is awake, alert, obeys commands, Oriented to person, place, time, situation, Appropriate for age. Cardiovascular: Patient's skin is warm and dry. Respiratory: Airway is patent Respiratory effort is even, unlabored, Respiratory pattern is regular, symmetrical. GI: Abdomen is round non-distended, Bowel sounds present X 4 quads. Abd is soft X 4 quads Abdomen is tender to palpation in suprapubic area. : Reports urinary frequency, Denies burning with urination. EENT: No signs and/or symptoms were reported regarding the EENT system. Derm: Skin is pink, warm \T\ dry. Musculoskeletal: Range of motion: intact in all extremities. Vital Signs: 07:21 BP 142 / 60; Pulse 77; Resp 16; Temp 97.9; Pulse Ox 99% ; Weight 74.39 kg; Height 5 ft. ll1 10 in. ; Pain 8/10; 09:25 BP 132 / 68; Pulse 72; Resp 18; Pulse Ox 99% on R/A; mb9 07:21 Body Mass Index 23.53 (74.39 kg, 177.8 cm) ll1 07:21 Pain Scale: Adult ll1 ED Course: 06:57 Patient arrived in ED. mg5 07:18 Arm band placed on Patient placed in an exam room, on a stretcher. ph 07:19 Shlomo Wagner MD is Attending Physician. rt 07:22 Triage completed. ll1 07:37 Amalia Garcia RN is Primary Nurse. mb9 07:37 Placed in gown. Bed in low position. Call light in reach. Side rails up X 1. Client mb9 placed on continuous cardiac and pulse oximetry monitoring. NIBP monitoring applied. 07:37 No provider procedures requiring assistance completed. mb9 07:59 CMP Sent. mb9 07:59 CBC with Diff Sent. mb9 07:59 TSH Sent. mb9 08:01 Missed attempt(s): 22 gauge in right forearm. mb9 08:03 Missed attempt(s): 20 gauge in right wrist. bc6 08:03 Inserted saline lock: 20 gauge in right forearm, using aseptic technique. bc6 10:19 Provided Education on: Fluid intake and proper antibiotic use. os 10:19 IV discontinued, intact, bleeding controlled, No redness/swelling at site. Pressure os dressing applied. Administered Medications: 08:04 Drug: Rocephin - Rocephin (cefTRIAXone) IVPB 1 grams IVPB once over 30 mins; (mix in 50 mb9 mL NS) Route: IVPB; Infused Over: 30 mins; Site: right forearm; 08:40 Follow up: Response: No adverse reaction; IV Status: Completed infusion mb9 08:39 Drug: NS 0.9% IV 1000 ml IV at 1000 ml once Route: IV; Rate: 1000 ml; Site: right mb9 forearm; 09:34 Follow up: Response: No adverse reaction; IV Status: Completed infusion mb9 Medication: 07:37 VIS not applicable for this client. mb9 Outcome: 10:11 Discharge ordered by . rt 10:19 Discharged to home ambulatory, os 10:19 Condition: stable 10:19 Discharge instructions given to patient, Instructed on discharge instructions, follow up and referral plans. medication usage, 10:21 Patient left the ED. os Signatures: Mitzi Tyson RN RN ph Lewis, Lynsay RN RN ll1 Amalia Garcia RN RN mb9 Shlomo Wagner MD MD rt Connie Serrano 6 Len Bloom RN RN os Angeli Casas mg5
--- NOTE | 2023-07-13 10:11 | EDPHYS ---
Physician Documentation [facility] Name: Kelli Faith Age: 72 yrs Sex: Female : 1950 Arrival Date: 07/13/2023 Time: 06:53 Bed 2 Private MD: ED Physician Shlomo Wagner HPI: 07/13 07:38 This 72 yrs old Female presents to ER via Ambulatory with complaints of Abdominal Pain rt - Low. 07:38 Patient presents to the ED with urinary frequency and lower abdominal pressure for the rt past few days. Also reports today that she feels vertiginous occasionally which is a fullness in her right ear. Denies other acute complaints at this time. Pain is pressure-like in nature, nonradiating, no other aggravating or alleviating factors.. Historical: - Allergies: 07:21 No Known Allergies; ll1 - PMHx: 07:21 Hypertension; Diabetes - NIDDM; mitral valve prolapse; ll1 - Immunization history:: Adult Immunizations up to date. - Social history:: Smoking status: Patient denies any tobacco usage or history of. - Family history:: not pertinent. ROS: 07:38 Constitutional: Negative for fever, chills, and weight loss, Cardiovascular: Negative rt for chest pain, palpitations, and edema, Respiratory: Negative for shortness of breath, cough, wheezing, and pleuritic chest pain, MS/Extremity: Negative for injury and deformity, Skin: Negative for injury, rash, and discoloration, Psych: Negative for depression, anxiety, suicide ideation, homicidal ideation, and hallucinations, 07:38 Abdomen/GI: Negative for nausea, vomiting, 07:38 : Positive for urinary frequency, burning with urination, 07:38 Neuro: Positive for dizziness, Negative for altered mental status, Exam: 07:38 Constitutional: This is a well developed, well nourished patient who is awake, alert, rt and in no acute distress. Head/Face: Normocephalic, atraumatic. ENT: Nares patent. No nasal discharge, no septal abnormalities noted. Tympanic membranes are normal and external auditory canals are clear. Oropharynx with no redness, swelling, or masses, exudates, or evidence of obstruction, uvula midline. Mucous membranes moist. Chest/axilla: Normal chest wall appearance and motion. Nontender with no deformity. No lesions are appreciated. Cardiovascular: Regular rate and rhythm with a normal S1 and S2. No gallops, murmurs, or rubs. Normal PMI, no JVD. No pulse deficits. Respiratory: Lungs have equal breath sounds bilaterally, clear to auscultation and percussion. No rales, rhonchi or wheezes noted. No increased work of breathing, no retractions or nasal flaring. Abdomen/GI: Soft, non-tender, with normal bowel sounds. No distension or tympany. No guarding or rebound. No evidence of tenderness throughout. Skin: Warm, dry with normal turgor. Normal color with no rashes, no lesions, and no evidence of cellulitis. MS/ Extremity: Pulses equal, no cyanosis. Neurovascular intact. Full, normal range of motion. Neuro: Awake and alert, GCS 15, oriented to person, place, time, and situation. Cranial nerves II-XII grossly intact. Motor strength 5/5 in all extremities. Sensory grossly intact. Cerebellar exam normal. Normal gait. Psych: Awake, alert, with orientation to person, place and time. Behavior, mood, and affect are within normal limits. 10:28 ENT: Right TM is bulging, erythematous, with effusion, left TM clear. rt Vital Signs: 07:21 BP 142 / 60; Pulse 77; Resp 16; Temp 97.9; Pulse Ox 99% ; Weight 74.39 kg; Height 5 ft. ll1 10 in. ; Pain 8/10; 09:25 BP 132 / 68; Pulse 72; Resp 18; Pulse Ox 99% on R/A; mb9 07:21 Body Mass Index 23.53 (74.39 kg, 177.8 cm) ll1 07:21 Pain Scale: Adult ll1 MDM: 07:20 Patient medically screened. rt 10:28 Differential Diagnosis UTI, diverticulitis, generalized abdominal pain. rt 10:28 Data reviewed: vital signs, nurses notes, lab test result(s). Test considered but Not rt performed: CT: Offered patient CT scan, she declines at this, stating that she wishes to try a course of antibiotics. Instructed patient to return if her symptoms do not go away if she develops worsening symptoms to reevaluate the need for imaging.. Care significantly affected by the following chronic conditions: Diabetes, Hypertension. Counseling: I had a detailed discussion with the patient and/or guardian regarding the historical points, exam findings, and any diagnostic results supporting the discharge/admit diagnosis, lab results, the need for outpatient follow up. 07/13 07:36 Order name: CBC with Diff; Complete Time: 09:39 rt 07/13 07:36 Order name: CMP; Complete Time: 09:39 rt 07/13 07:36 Order name: UAM; Complete Time: 10:00 rt 07/13 07:36 Order name: TSH; Complete Time: 09:39 rt 07/13 07:38 Order name: IV Saline Lock; Complete Time: 08:03 mb9 07/13 08:07 Order name: Labs - recollect needed: recollect green top; Complete Time: 08:12 bd 07/13 08:15 Order name: Labs - recollect needed: recollect urine; Complete Time: 09:34 bd Administered Medications: 08:04 Drug: Rocephin - Rocephin (cefTRIAXone) IVPB 1 grams IVPB once over 30 mins; (mix in 50 mb9 mL NS) Route: IVPB; Infused Over: 30 mins; Site: right forearm; 08:40 Follow up: Response: No adverse reaction; IV Status: Completed infusion mb9 08:39 Drug: NS 0.9% IV 1000 ml IV at 1000 ml once Route: IV; Rate: 1000 ml; Site: right mb9 forearm; 09:34 Follow up: Response: No adverse reaction; IV Status: Completed infusion mb9 Disposition Summary: 07/13/23 10:11 Discharge Ordered Notes: Location: Home rt Problem: new rt Symptoms: are unchanged rt Condition: Stable rt Diagnosis - Acute serous otitis media, right ear rt - Urinary frequency rt - Suprapubic abdominal pain rt Followup: rt - With: Private Physician - When: 5 - 6 days - Reason: Followup: rt - With: Emergency Department - When: As needed - Reason: Worsening of condition Discharge Instructions: - Discharge Summary Sheet rt - Abdominal Pain, Adult rt - Otitis Media, Adult rt - Urinary Frequency, Adult rt Forms: - Medication Reconciliation Form rt - Thank You Letter rt - Antibiotic Education rt - Prescription Opioid Use rt - Patient Portal Instructions rt - Leadership Thank You Letter rt Prescriptions: - Augmentin 875-125 mg Oral Tablet - take 1 tablet ORAL route every 12 hours for 10 days; 20 tablet; Refills: 0, rt Product Selection Permitted Signatures: Dispatcher [employer] Rosalba Moran Lynsay, RN RN ll1 Amalia Garcia RN RN mb9 Shlomo Wagner MD MD rt
[2023-07-13 10:38] VITALS: TEMP 97.9; O2SAT 99
[2023-07-13 10:44] VITALS: BP 132/68
== END 2023-07-13 10:21 | disposition home or self-care (01) ==
LOC: ER 06:53
DX: H65.01 Acute serous otitis media, right ear (principal); R35.0 Frequency of micturition; R10.30 Lower abdominal pain, unspecified; E11.9 Type 2 diabetes mellitus without complications; I10 Essential (primary) hypertension
CPT/HCPCS: 96365; 96361; 85025; 81001; 36415; 84443; 80053; 99284; J7030; J0696

== ENCOUNTER 2023-12-23 13:18 | Observation (INO) | payer OTHER ==
[2023-12-23] MEDS ORDERED: NITROGLYCERIN 0.4 MG/TAB SL ONE (13:36)
[2023-12-23] MEDS ORDERED: MORPHINE 4 MG/ML SYR ONE (13:46)
[2023-12-23] MEDS ORDERED: ONDANSETRON 4 MG/2 ML VIAL ONE (13:46)
[2023-12-23 13:57] LABS: Hematocrit 42.8 % (36.0-45.0); Hemoglobin 14.7 g/dL (12.0-15.0); MCH 30.1 pg (27.0-35.0); MCHC 34.3 g/dL (32.0-36.0); MCV 87.9 fL (80-100); Platelets 281 thou/uL (152-406); RBC Red Blood Cell Count 4.87 M/uL (3.86-4.86)
[2023-12-23 13:58] LABS: Absolute Basophils 0.1 K/uL (0-0.5); Absolute Lymphocytes (CBC) 2.9 K/uL (0.7-4.9); Absolute Monocytes 0.5 K/uL (0.1-1.3); Absolute Neutrophil 5.7 K/uL (1.8-8.0); Basophils % 1.5 % (0-1.3); Eosinophils % 0.5 % (0-4.4); Lymphocytes % 31.2 % (15.3-44.8); MPV 8.1 fL (7.6-11.3); Monocytes % 5.1 % (3.3-12.3); Neutrophils % 61.7 % (41.7-73.7); Red Cell Distribution Width 13.9 % (12.1-15.2)
[2023-12-23 14:09] LABS: Anion Gap 13.8 mEq/L (5.0-15.0); Bilirubin Direct 0.2 mg/dL (0-0.2); Bilirubin Indirect, Calculated 0.5 mg/dL (0.2-0.8); Bilirubin Total 0.7 mg/dL (0.2-1.0); Potassium 3.8 mEq/L (3.5-5.1); Protein, Total 8.2 g/dL (6.4-8.2)
[2023-12-23] MEDS ORDERED: FAMOTIDINE 20 MG/2 ML VIAL IV ONE (14:09)
[2023-12-23] MEDS ORDERED: NA CHLORIDE 0.9% 500 ML ONE (14:09)
[2023-12-23] MEDS ORDERED: HYDROMORPHONE HCL 1 MG/ML INJ ONE ×2 (14:09→16:35)
[2023-12-23 14:10] LABS: Albumin 3.9 g/dL (3.4-5.0); Albumin/Globulin Ratio 0.9 (1.1-1.8); Globulin 4.3 g/dL (2.3-3.5); Magnesium 1.6 mg/dL (1.6-2.4); Troponin High Sensitivity 4.1 pg/mL (<58.9)
[2023-12-23 15:07] LABS: Urine Bacteria None Seen /HPF (<20); Urine Bilirubin NEGATIVE (Negative); Urine Blood Negative (Negative); Urine Clarity Clear (Clear); Urine Color Colorless (Yellow); Urine Culture Reflex Order NOT NEEDED; Urine Glucose NEGATIVE (Negative); Urine Ketones 1+ (Negative); Urine Micro Reflex YN NO BILL MICROSCOPIC; Urine Mucus Slight /HPF (None Seen); Urine Nitrite NEGATIVE (Negative); Urine Protein NEGATIVE (Negative); Urine Urobilinogen Normal (Normal); Urine WBC <5 /HPF (<5); Urine pH 7.5 (5.0-7.0)
[2023-12-23] MEDS ORDERED: KETOROLAC 30 MG/ML INJ ONE (15:08)
[2023-12-23] MEDS ORDERED: HYDRALAZINE HCL 20 MG/ML VIAL ONE (15:08)
[2023-12-23 15:15] LABS: Specific Gravity > 1.030 (1.005-1.030)
--- NOTE | 2023-12-23 15:56 | RAD REPORT ---
EXAM DESCRIPTION: CT - Chest For Pe Angio - 12/23/2023 2:28 pm CLINICAL HISTORY: Chest pain;SOB COMPARISON: Chest Single View dated 12/23/2023 TECHNIQUE: Thin axial CT images of the chest were obtained following administration of 100 mL Isovue 370 IV contrast. Multiplanar reconstructions, and maximum intensity projection reconstructions were generated and reviewed. Exam utilizes a protocol for optimal evaluation of pulmonary arterial tree. All CT scans are performed using dose optimization technique as appropriate and may include automated exposure control or mA/KV adjustment according to patient size. FINDINGS: Pulmonary arteries are normal. No emboli or other suspicious finding. No acute or signific ant aorta findings. Few scattered subcentimeter granulomas as well as small mediastinal and hilar calcified lymph nodes, suggesting sequelae of remote granulomatous disease. No mass or infiltrate in the lung parenchyma. No pleural thickening or pleural effusion. No pneumotho rax. No abnormal mediastinal or hilar masses or lymphadenopathy seen. No chest wall mass or abnormal axill iary lymphadenopathy. IMPRESSION: No evidence of acute central pulmonary emboli. Negative CT scan of the chest for other significant findings.
--- NOTE | 2023-12-23 15:57 | RAD REPORT ---
EXAM DESCRIPTION: RADChest Single View12/23/2023 2:36 pm CLINICAL HISTORY: CHEST PAIN COMPARISON: Chest Pa And Lat (2 Views) dated 10/18/2022; Chest Pa And Lat (2 Views) dated 08/20/2021; C hest Single View dated 05/27/2020; Chest Single View dated 08/12/2019 TECHNIQUE: Portable AP view of the chest. FINDINGS: The lungs are clear. No pneumothorax or effusion. The cardiomediastinal contours are unre markable. IMPRESSION: No acute cardiopulmonary process.
[2023-12-23] MEDS ORDERED: NA CHLORIDE 0.9% 100 ML ONE (16:36)
[2023-12-23] MEDS ORDERED: METHOCARBAMOL 1,000 MG/10 ML VIAL ONE (16:36)
[2023-12-23] MEDS ORDERED: METHYLPREDNISOLONE 40 MG INJ ONE (16:36)
--- NOTE | 2023-12-23 19:03 | EDPHYS ---
Physician Documentation [facility] Name: Kelli Faith Age: 73 yrs Sex: Female : 1950 Arrival Date: 12/23/2023 Time: 13:18 Bed 6 Private MD: ED Physician Carlos Neely HPI: 12/22 13:32 This 73 yrs old Female presents to ER via Unassigned with complaints of Chest Pain, cp Shortness Of Breath. 13:32 The patient or guardian reports chest pain that is located primarily in the right side cp anterior and lateral chest. 13:32 Onset: 3 day(s) ago. The pain radiates to the right arm. Associated signs and symptoms: cp Pertinent positives: cough, shortness of breath, Pertinent negatives: diaphoresis, lower extremity pain, lower extremity swelling, syncope. The chest pain is described as sharp. Duration: The patient or guardian reports a single episode, that is still ongoing, and worsening. Historical: - Allergies: 13:33 No Known Allergies; hb - PMHx: 13:33 Diabetes - NIDDM; Hypertension; mitral valve prolapse; hb - Immunization history:: Adult Immunizations up to date. - Infectious Disease History:: Denies. - Social history:: Smoking status: Patient/guardian denies using tobacco. ROS: 13:38 Constitutional: Negative for body aches, chills, fever, poor PO intake, cp 13:38 Cardiovascular: Positive for chest pain, of the right side of chest, Negative for edema, palpitations, 13:38 Respiratory: Positive for cough, with no reported sputum, shortness of breath, at rest. Negative for shortness of breath, 13:38 Abdomen/GI: Positive for nausea and vomiting, Negative for diarrhea, constipation, 13:38 Skin: Negative for rash, 13:38 Neuro: Negative for altered mental status, dizziness, headache, numbness, syncope, weakness, 13:38 Back: Negative for pain at rest, pain with movement, cp 13:38 All other systems are negative, cp Exam: 13:40 ECG was reviewed by the Attending Physician. cp 13:45 Constitutional: The patient appears in no acute distress, alert, awake, cp non-diaphoretic, non-toxic, well developed, well nourished, in obvious pain, uncomfortable, 13:45 Head/Face: Normocephalic, atraumatic. cp 13:45 Eyes: Periorbital structures: appear normal, Conjunctiva: normal, no exudate, no injection, Sclera: no appreciated abnormality, Lids and lashes: appear normal, bilaterally, 13:45 ENT: External ear(s): are unremarkable, Nose: is normal, Mouth: Lips: moist, Oral mucosa: pink and intact, moist, Posterior pharynx: is normal, airway is patent, no erythema, no exudate, 13:45 Neck: ROM/movement: is normal, is supple, without pain, no range of motions limitations, 13:45 Chest/axilla: Inspection: normal, Palpation: crepitus, is not appreciated, tenderness, that is severe, of the right lower lateral chest wall, 13:45 Cardiovascular: Rate: normal, Rhythm: regular, Edema: is not appreciated, JVD: is not appreciated, 13:45 Respiratory: the patient does not display signs of respiratory distress, Respirations: normal, no use of accessory muscles, no retractions, labored breathing, is not present, Breath sounds: are clear throughout, no decreased breath sounds, no stridor, no wheezing, 13:45 Abdomen/GI: Inspection: abdomen appears normal, Palpation: abdomen is soft and non-tender, in all quadrants, 13:45 Back: CVA tenderness, is absent, 13:45 Skin: cellulitis, is not appreciated, no rash present. 13:45 Neuro: Orientation: to person, place \T\ time. Mentation: is normal, Motor: moves all fours, strength is normal, Sensation: is normal, Vital Signs: 13:32 BP 218 / 98; Pulse 66; Resp 18; Temp 98.1; Pulse Ox 100% on R/A; Weight 74.39 kg; hb Height 5 ft. 10 in. ; Pain 10/10; 14:19 BP 193 / 70; Pulse 72; Resp 18 S; Pulse Ox 100% on R/A; aa5 15:28 BP 183 / 64; Pulse 83; Resp 16 S; Pulse Ox 100% on R/A; aa5 16:40 BP 170 / 65; Pulse 76; Resp 20 S; Pulse Ox 98% on R/A; aa5 17:13 Pulse Ox 88% on R/A; aa5 17:14 Pulse Ox 100% on 2 lpm NC; aa5 17:30 BP 179 / 88; Pulse 76; Resp 17 S; Pulse Ox 100% on 2 lpm NC; aa5 19:00 BP 184 / 61; Pulse 69; Resp 14; Pulse Ox 100% on R/A; tm6 20:00 BP 160 / 70; Pulse 68; Resp 16; Pulse Ox 100% on R/A; tm6 21:00 BP 176 / 70; Pulse 68; Resp 14; Pulse Ox 100% on R/A; tm6 21:54 BP 174 / 71; Pulse 66; Resp 14; Temp 98; Pulse Ox 100% on R/A; tm6 13:32 Body Mass Index 23.53 (74.39 kg, 177.8 cm) hb 13:32 Pain Scale: Adult hb 17:13 low O2 sat noted post dilaudid administration, pt awake and alert, states feeling aa5 better, pain decreased. MDM: 13:27 Patient medically screened. cp 15:00 Differential diagnosis: acute myocardial infarction, acute pericarditis, pericarditis, cp pleurisy, pneumonia, pneumothorax, pulmonary embolus. 19:05 The patient was given aspirin in the Emergency Department. cp 19:05 Data reviewed: vital signs, nurses notes, lab test result(s), EKG, radiologic studies, cp CT scan, plain films. I considered the following discharge prescriptions or medication management in the emergency department Medications were administered in the Emergency Department. See MAR. Independent interpretation of the following test(s) in the Emergency Department EKG: See my EKG interpretation above. 19:10 Management of patient was discussed with the following: Hospitalist: DR San will cp admit and DR Aguilar will consult for cardiology. 12/22 13:31 Order name: Basic Metabolic Panel; Complete Time: 14:13 cp 12/22 14:13 Interpretation: Normal except: NA 135; GLUC 179; GFR 65; CA 10.4. cp 12/22 13:31 Order name: CBC with Diff; Complete Time: 14:13 cp 04 14:13 Interpretation: Normal except: RBC 4.87; BASO% 1.5. cp 12/22 13:31 Order name: LFT's; Complete Time: 14:13 cp 12/22 14:50 Interpretation: Normal except: AST 12; GLOB 4.3; A/G 0.9. cp 12/22 13:31 Order name: Magnesium; Complete Time: 14:13 cp 12/22 14:50 Interpretation: Reviewed. cp 12/22 13:31 Order name: NT PRO-BNP; Complete Time: 14:13 cp 12/22 13:31 Order name: PT-INR; Complete Time: 14:13 cp 12/22 13:31 Order name: Troponin HS; Complete Time: 14:13 cp 12/22 14:50 Interpretation: Reviewed. cp 12/22 13:31 Order name: Lipase; Complete Time: 14:13 cp 12/22 13:38 Order name: Urinalysis W/Microscopic; Complete Time: 15:27 cp 12/22 15:27 Interpretation: Normal except: Urine SG > 1.030; UKET 1+; UPH 7.5; UESTR 500; URBC 5-10.cp 12/22 16:22 Order name: Troponin HS: 3 hr repeat; Complete Time: 17:53 cp 12/22 20:10 Order name: Creatine Phosphokinase EDAR 12/22 20:10 Order name: CBC with Automated Diff EDMS 12/22 20:10 Order name: CBC with Automated Diff EDMS 12/22 20:10 Order name: Comprehensive Metabolic Panel EDMS 12/22 20:10 Order name: Comprehensive Metabolic Panel EDMS 12/22 20:22 Order name: Troponin High Sensitivity EDAR 12/22 20:22 Order name: Troponin High Sensitivity EDAR 12/22 13:31 Order name: XRAY Chest (1 view); Complete Time: 15:59 cp 12/22 15:59 Interpretation: Report review. cp 12/22 14:14 Order name: CT Chest For PE Angio; Complete Time: 15:59 cp 12/22 16:20 Interpretation: Report reviewed. 12/22 20:01 Order name: Ribs Right EDMS 12/22 20:10 Order name: CONS Physician Consult EDAR 12/22 13:31 Order name: Cardiac monitoring; Complete Time: 13:36 cp 12/22 13:31 Order name: EKG - Nurse/Tech; Complete Time: 13:36 cp 12/22 13:31 Order name: IV Saline Lock; Complete Time: 13:44 cp 12/22 13:31 Order name: Labs collected and sent; Complete Time: 13:44 cp 12/22 13:31 Order name: O2 Per Protocol; Complete Time: 13:36 cp 12/22 13:31 Order name: O2 Sat Monitoring; Complete Time: 13:36 cp 12/22 18:25 Order name: EKG - Nurse/Tech; Complete Time: 19:10 cp EC:40 Rate is 67 beats/min. Rhythm is regular. MD interval is normal. QRS interval is normal. cp QT interval is normal. T waves are Inverted in lead aVR. Interpreted by me. Reviewed by me. Administered Medications: 13:38 Drug: Nitroglycerin Sublingual 0.4 mg Sublingual once Route: Sublingual; aa5 13:45 Follow up: Response: No adverse reaction aa5 14:00 Drug: morphine IVP or IV 4 mg IVP once over 4 mins Route: IVP; Infused Over: 4 mins; aa5 Site: right antecubital; 14:10 Follow up: Response: No adverse reaction; Pain is unchanged, physician notified aa5 14:00 Drug: Ondansetron IVP 4 mg IVP once; over 2 minutes Route: IVP; Site: right antecubital;aa5 14:10 Follow up: Response: No adverse reaction aa5 14:15 Drug: NS 0.9% IV 500 ml IV at 125 ml/hr continuous Route: IV; Rate: 125 ml/hr; Site: aa5 right antecubital; 14:15 Drug: Famotidine IVP 20 mg IVP once; dilute with 10 mL 0.9% NaCl; give over 2 minutes aa5 Route: IVP; Site: right antecubital; 14:20 Follow up: Response: No adverse reaction aa5 14:15 Drug: HYDROmorphone IVP 1 mg IVP once Route: IVP; Site: right antecubital; aa5 14:20 Follow up: Response: No adverse reaction aa5 15:15 Drug: hydrALAZINE IVP 20 mg IVP once; For SBP > 140 mmHg. Hold if less than 120 mmHg. aa5 Route: IVP; Site: right antecubital; 15:28 Follow up: Response: No adverse reaction; Blood pressure is lowered aa5 15:15 Drug: Ketorolac IVP 15 mg IVP once Route: IVP; Site: right antecubital; aa5 15:28 Follow up: Response: No adverse reaction; Pain is unchanged, physician notified aa5 16:40 Drug: HYDROmorphone IVP 1 mg IVP once Route: IVP; Site: right antecubital; aa5 17:00 Follow up: Response: No adverse reaction; Pain is decreased aa5 16:40 Drug: MethylPrednisoLONE IVP 80 mg IVP once Route: IVP; Site: right antecubital; aa5 17:00 Follow up: Response: No adverse reaction aa5 16:43 Drug: Methocarbamol IVPB 1 grams IVPB once over 1 hrs; (mix in NS 100 mL) Route: IVPB; aa5 Infused Over: 1 hrs; Site: right antecubital; 17:43 Follow up: IV Status: Completed infusion aa5 19:23 Drug: Aspirin PO Chewable Tablet 324 mg PO once; 81 mg tablets x 4 Route: PO; iw 21:52 Follow up: Response: No adverse reaction rv Disposition Summary: 12/23/23 19:03 Hospitalization Ordered Notes: Hospitalization Status: Observation cp Provider: Princess San cp Location: Telemetry/MedSurg (observation) cp Condition: Stable cp Problem: new cp Symptoms: have improved cp Bed/Room Type: Standard cp Room Assignment: 425(12/23/23 20:53) cg Diagnosis - Chest pain, unspecified cp Forms: - Medication Reconciliation Form cp - SBAR form cp - Leadership Thank You Letter cp Signatures: Dispatcher [employer] Shena Marshall RN RN Hilary Rodriguez RN RN aa5 Carlos Mejia PA PA cp Jessi Villalobos RN RN Sheila Garces RN RN Ramiro Gann RN rv Corrections: (The following items were deleted from the chart) 13:32 13:32 BASIC METABOLIC PANEL+C.LAB.BRZ ordered. EDMS EDMS 13:32 13:32 CBC+H.LAB.BRZ ordered. EDMS EDMS 13:32 13:32 HEPATIC FUNCTION+C.LAB.BRZ ordered. EDMS EDMS 13:32 13:32 MAGNESIUM+C.LAB.BRZ ordered. EDMS EDMS 13:32 13:32 PROBNP+C.LAB.BRZ ordered. EDMS EDMS 13:32 13:32 PROTIME (+INR)+COAG.LAB.BRZ ordered. EDMS EDMS 13:32 13:32 Troponin High Sensitivity+C.LAB.BRZ ordered. EDMS EDMS 13:32 13:32 LIPASE+C.LAB.BRZ ordered. EDMS EDMS 13:32 13:32 Chest Single View+RAD.RAD.BRZ ordered. EDMS EDMS 14:04 13:38 Respiratory: Positive for cough, with no reported sputum, Negative for shortness cp of breath, wheezing, cp 20:53 19:03 cp cg
--- NOTE | 2023-12-23 19:03 | ER ---
Nurse's Notes [facility] Name: Kelli Faith Age: 73 yrs Sex: Female : 1950 Arrival Date: 12/23/2023 Time: 13:18 Bed 6 Private MD: Diagnosis: Chest pain, unspecified Presentation: 12/22 13:32 Chief complaint: Worsening right sided chest pain that radiates to right face and arm x hb 3 days. Coronavirus screen: At this time, the client does not indicate any symptoms associated with coronavirus-19. Ebola Screen: No symptoms or risks identified at this time. Initial Sepsis Screen: Does the patient meet any 2 criteria? No. Patient's initial sepsis screen is negative. Does the patient have a suspected source of infection? No. Patient's initial sepsis screen is negative. Risk Assessment: Do you want to hurt yourself or someone else? Patient reports no desire to harm self or others. Onset of symptoms was December 21, 2023. 13:32 Method Of Arrival: Ambulatory hb 13:32 Acuity: KYARA 2 hb Triage Assessment: 13:33 General: Appears in no apparent distress. Behavior is calm, cooperative. Pain: Pain hb currently is 10 out of 10 on a pain scale. Neuro: Level of Consciousness is awake, alert, obeys commands, Oriented to person, place, time, situation. Cardiovascular: Chest pain. Respiratory: Respiratory effort is even, unlabored, Respiratory pattern is regular, symmetrical. Historical: - Allergies: 13:33 No Known Allergies; hb - PMHx: 13:33 Diabetes - NIDDM; Hypertension; mitral valve prolapse; hb - Immunization history:: Adult Immunizations up to date. - Infectious Disease History:: Denies. - Social history:: Smoking status: Patient/guardian denies using tobacco. Screenin:35 [facility] ED Fall Risk Assessment (Adult) History of falling in the last 3 months, aa5 including since admission No falls in past 3 months (0 pts) Confusion or Disorientation No (0 pts) Intoxicated or Sedated No (0 pts) Impaired Gait No (0 pts) Mobility Assist Device Used No (0 pt) Altered Elimination No (0 pt) Score/Fall Risk Level 0 - 2 = Low Risk Oriented to surroundings, Maintained a safe environment, Educated pt \\T\\ family on fall prevention, incl call for assistance when getting out of bed. Abuse screen: Denies threats or abuse. Nutritional screening: No deficits noted. Tuberculosis screening: No symptoms or risk factors identified. Assessment: 13:35 General: Appears uncomfortable, Behavior is calm, cooperative. Pain: Complains of pain aa5 in right breast Pain radiates to right axilla and around to right upper back Pain currently is 10 out of 10 on a pain scale. Quality of pain is described as sharp, Is intermittent, episodic, Aggravated by lying down on right side of body. Neuro: Level of Consciousness is awake, alert, obeys commands, Oriented to person, place, time, situation. Cardiovascular: Heart tones S1 S2 present Pulses are 3+ in right dorsalis pedis artery and left dorsalis pedis artery Edema is absent. Rhythm is regular. Respiratory: Airway is patent Respiratory effort is even, unlabored, Respiratory pattern is regular, symmetrical, Breath sounds are clear bilaterally. GI: Abdomen is non-distended, Bowel sounds present X 4 quads. Abd is soft and non tender X 4 quads. Reports nausea. : No signs and/or symptoms were reported regarding the genitourinary system. EENT: No signs and/or symptoms were reported regarding the EENT system. Derm: Skin is pink, warm \\T\\ dry. Musculoskeletal: Range of motion: intact in all extremities. 13:40 Reassessment: Pt reports nitro only helped the pain slightly, rates pain 9/10. . aa5 13:55 Reassessment: Pt states "the pain is sharp again", rates pain 10/10, PA was notified. . aa5 General: Appears uncomfortable, Behavior is restless. 14:05 Reassessment: Patient states symptoms have not improved. PA was notified ,see MAR for aa5 orders. . 14:05 Pain: Pain currently is 10 out of 10 on a pain scale. aa5 14:15 Reassessment: Patient is alert, oriented x 3, equal unlabored respirations, skin aa5 warm/dry/pink. General: Appears uncomfortable, Behavior is restless. 14:15 Pain: Pain currently is 10 out of 10 on a pain scale. aa5 14:30 Pain: Pain currently is 9 out of 10 on a pain scale. aa5 14:30 Reassessment: Patient is alert, oriented x 3, equal unlabored respirations, skin aa5 warm/dry/pink. General: Appears uncomfortable. 15:00 Reassessment: Patient is alert, oriented x 3, equal unlabored respirations, skin aa5 warm/dry/pink. Patient states symptoms have not improved. PA was notified of persistent pain. . 15:00 Pain: Pain currently is 10 out of 10 on a pain scale. aa5 16:00 Reassessment: Patient is alert, oriented x 3, equal unlabored respirations, skin aa5 warm/dry/pink. Patient states symptoms have not improved. Pain: Pain currently is 10 out of 10 on a pain scale. 16:00 General: Appears uncomfortable, Behavior is restless. aa5 16:40 Reassessment: Patient is alert, oriented x 3, equal unlabored respirations, skin aa5 warm/dry/pink. 16:40 Pain: Pain currently is 9 out of 10 on a pain scale. aa5 17:00 Reassessment: Patient is alert, oriented x 3, equal unlabored respirations, skin aa5 warm/dry/pink. Patient states symptoms have improved. Pain: Pain currently is 4 out of 10 on a pain scale. 17:13 Reassessment: Pt resting in bed with eyes closed, appears comfortable, pt assisted with aa5 bedpan (due to decreased O2 sat), pt voided and now resting again. . Vital Signs: 13:32 BP 218 / 98; Pulse 66; Resp 18; Temp 98.1; Pulse Ox 100% on R/A; Weight 74.39 kg; hb Height 5 ft. 10 in. ; Pain 10/10; 14:19 BP 193 / 70; Pulse 72; Resp 18 S; Pulse Ox 100% on R/A; aa5 15:28 BP 183 / 64; Pulse 83; Resp 16 S; Pulse Ox 100% on R/A; aa5 16:40 BP 170 / 65; Pulse 76; Resp 20 S; Pulse Ox 98% on R/A; aa5 17:13 Pulse Ox 88% on R/A; aa5 17:14 Pulse Ox 100% on 2 lpm NC; aa5 17:30 BP 179 / 88; Pulse 76; Resp 17 S; Pulse Ox 100% on 2 lpm NC; aa5 19:00 BP 184 / 61; Pulse 69; Resp 14; Pulse Ox 100% on R/A; tm6 20:00 BP 160 / 70; Pulse 68; Resp 16; Pulse Ox 100% on R/A; tm6 21:00 BP 176 / 70; Pulse 68; Resp 14; Pulse Ox 100% on R/A; tm6 21:54 BP 174 / 71; Pulse 66; Resp 14; Temp 98; Pulse Ox 100% on R/A; tm6 13:32 Body Mass Index 23.53 (74.39 kg, 177.8 cm) hb 13:32 Pain Scale: Adult hb 17:13 low O2 sat noted post dilaudid administration, pt awake and alert, states feeling aa5 better, pain decreased. ED Course: 13:19 Patient arrived in ED. mg5 13:27 Carlos Mejia PA is PHCP. cp 13:27 Carlos Neely MD is Attending Physician. cp 13:32 EKG done, by ED staff, reviewed by Carlos WASHINGTON. hb 13:33 Triage completed. hb 13:33 Arm band placed on. hb 13:34 Client placed on continuous cardiac and pulse oximetry monitoring. NIBP monitoring hb applied. line mover on. Pulse ox on. NIBP on. 13:35 Hilary Rodriguez, CHELSIE is Primary Nurse. aa5 13:35 Patient has correct armband on for positive identification. Placed in gown. Bed in low aa5 position. Call light in reach. Side rails up X2. 13:45 Initial lab(s) drawn, by me, sent to lab. Inserted saline lock: 20 gauge in right aa5 antecubital area, using aseptic technique. Blood collected. 14:30 CT Chest For PE Angio In Process Unspecified. EDMS 14:38 XRAY Chest (1 view) In Process Unspecified. EDMS 14:52 Urinalysis W/Microscopic Sent. bc6 17:04 Repeat lab(s) drawn. by me, sent to lab. Repeat troponin. aa5 17:13 Oxygen administration via nasal cannula \\T\\ 2L/min. aa5 19:00 Report given to CHELSIE Rubio and CHELSIE Yang. aa5 19:02 Princess San MD is Hospitalizing Provider. cp 21:52 No provider procedures requiring assistance completed. Patient admitted, IV remains in rv place. Administered Medications: 13:38 Drug: Nitroglycerin Sublingual 0.4 mg Sublingual once Route: Sublingual; aa5 13:45 Follow up: Response: No adverse reaction aa5 14:00 Drug: morphine IVP or IV 4 mg IVP once over 4 mins Route: IVP; Infused Over: 4 mins; aa5 Site: right antecubital; 14:10 Follow up: Response: No adverse reaction; Pain is unchanged, physician notified aa5 14:00 Drug: Ondansetron IVP 4 mg IVP once; over 2 minutes Route: IVP; Site: right antecubital;aa5 14:10 Follow up: Response: No adverse reaction aa5 14:15 Drug: NS 0.9% IV 500 ml IV at 125 ml/hr continuous Route: IV; Rate: 125 ml/hr; Site: aa5 right antecubital; 14:15 Drug: Famotidine IVP 20 mg IVP once; dilute with 10 mL 0.9% NaCl; give over 2 minutes aa5 Route: IVP; Site: right antecubital; 14:20 Follow up: Response: No adverse reaction aa5 14:15 Drug: HYDROmorphone IVP 1 mg IVP once Route: IVP; Site: right antecubital; aa5 14:20 Follow up: Response: No adverse reaction aa5 15:15 Drug: hydrALAZINE IVP 20 mg IVP once; For SBP > 140 mmHg. Hold if less than 120 mmHg. aa5 Route: IVP; Site: right antecubital; 15:28 Follow up: Response: No adverse reaction; Blood pressure is lowered aa5 15:15 Drug: Ketorolac IVP 15 mg IVP once Route: IVP; Site: right antecubital; aa5 15:28 Follow up: Response: No adverse reaction; Pain is unchanged, physician notified aa5 16:40 Drug: HYDROmorphone IVP 1 mg IVP once Route: IVP; Site: right antecubital; aa5 17:00 Follow up: Response: No adverse reaction; Pain is decreased aa5 16:40 Drug: MethylPrednisoLONE IVP 80 mg IVP once Route: IVP; Site: right antecubital; aa5 17:00 Follow up: Response: No adverse reaction aa5 16:43 Drug: Methocarbamol IVPB 1 grams IVPB once over 1 hrs; (mix in NS 100 mL) Route: IVPB; aa5 Infused Over: 1 hrs; Site: right antecubital; 17:43 Follow up: IV Status: Completed infusion aa5 19:23 Drug: Aspirin PO Chewable Tablet 324 mg PO once; 81 mg tablets x 4 Route: PO; iw 21:52 Follow up: Response: No adverse reaction rv Medication: 21:53 VIS not applicable for this client. rv Outcome: 19:03 Decision to Hospitalize by Provider. cp 21:52 Admitted to Tele accompanied by tech, via stretcher, room 425, Other report faxed and rv received by Amberly HOLGUIN 21:52 Condition: good 21:52 Instructed on the need for admit, 21:54 Patient left the ED. tm6 Signatures: Dispatcher [employer] EDMS Shena Aguero RN RN iw Hilary Rodriguez RN RN aa5 Carlos Mejia PA PA cp Sheila Garces, RN RN Ramiro Gann RN RN rv Connie Serrano 6 Angeli Casas mg5 Trey Funes RN RN tm6 Corrections: (The following items were deleted from the chart) 17:18 17:13 Pulse Ox 88% RA; aa5 aa5
[2023-12-23] MEDS ORDERED: ASPIRIN 81 MG CHEWABLE TABLET ONE (19:18)
[2023-12-23] MEDS ORDERED: MORPHINE 2 MG/ML SYR IV PRN (19:59)
[2023-12-23] MEDS ORDERED: ONDANSETRON 4 MG/2 ML VIAL IV PRN (19:59)
[2023-12-23] MEDS ORDERED: ALBUTEROL 2.5 MG/3 ML NEB SOL NEB PRN (19:59)
--- NOTE | 2023-12-23 20:17 | P.HP ---
Certification for Inpatient Patient admitted to: Observation With expected LOS: <2 Midnights Patient will require the following post-hospital care: None Practitioner: I am a practitioner with admitting privileges, knowledge of patient current condition, hospital course, and medical plan of care. Services: Services provided to patient in accordance with Admission requirements found in Title 42 Section 412.3 of the Code of Federal Regulations Patient History Date of Service: 12/23/23 Reason for admission: Right sided chest pain History of Present Illness: 73-year-old female with past medical history of hypertension diabetes hypothyroid disease who presented after developing right-sided chest pain, pain is located over the right rib margin radiating towards the back as well as some down the right arm. She also admits to some tingling and pain over the right face, intermittent. She states chest pain waxes and wane, range from 5-10 and not really resolve after a few minutes and they recalled again. She described pain as more stabbing. She denies any history of gallstones as she has had cholecystectomy in the past. She denies any nausea or vomiting until today when she felt some nausea after given multiple pain meds in the emergency room. She admits to some headaches intermittently also. She states she has recently been lifting some things in the garage. Prior to onset of the pain she states she developed a nonproductive cough that was distressing but resolved since yesterday. On arrival in the ED vital signs were stable except for blood pressure in the 140s. Blood pressure gradually worsening to 200/112. Heart rate was in the 70s, EKG shows normal sinus rhythm with no ST segment changes. Chest x-ray shows no pulmonary infiltrate or pulmonary edema. CTA of the chest shows no pulmonary embolism as well as a remote granulomatous changes. No acute intraparenchymal changes noted Initial cardiac enzymes with troponin negative at 4, repeat elevated but still within normal range at 29. Allergies No Known Allergies Allergy (Unverified 06/09/16 19:58) Home medications list reviewed: Yes - Past Medical/Surgical History Has patient received pneumonia vaccine in the past: No Diabetic: Yes -: Hypertension -: Diabetes mellitus -: Hyperlipidemia -: Hypothyroidism -: Cholecystectomy - Family History Family History: Reviewed- Non-Contributory - Social History Smoking Status: Never smoker Place of Residence: Home Review of Systems General: Weakness ENT: Ear Pain Respiratory: Cough, Dry, Shortness of Breath Cardiovascular: Chest Pain (Right) Gastrointestinal: Nausea Physical Examination - Studies Laboratory Data (last 24 hrs) 12/23/23 12/23/23 12/23/23 13:43 13:43 13:43 WBC 9.20 Hgb 14.7 Hct 42.8 Plt Count 281 PT 11.0 INR 1.00 Sodium 135 L Potassium 3.8 BUN 15 Creatinine 0.92 Glucose 179 H Magnesium 1.6 Total Bilirubin 0.7 AST 12 L ALT 19 Alkaline Phosphatase 61 Lipase 30 Assessment and Plan - Problems (Diagnosis) (1) Right-sided chest pain Current Visit: Yes Status: Acute (2) Hypertension Current Visit: Yes Status: Acute (3) Diabetes mellitus Current Visit: Yes Status: Acute (4) UTI (urinary tract infection) Current Visit: Yes Status: Acute - Plan Impression Right-sided chest painnotable tenderness around the posterior 5th-7th rib marginlikely musculoskeletal in origin Hypertensionuncontrolled, may be due to pain factor Diabetes mellitus HLD UTIatypically symptomatic Plan Will admit to observation Right-sided chest pain that continue serial sets of cardiac enzymes, 2 sets negative EKG unremarkable Cardiology consult obtained Start gentle IV fluid Will obtain right rib series UTIMay be causing patient's multiple body aches Start empirical Rocephin Follow urine culture Hypertensionuncontrolled, follow with better pain control Restart home dose of Coreg may need to increase dose IV hydralazine x 1 now Diabetes mellitusinsulin sliding scale, resume metformin DVT prophylaxissubcutaneous Lovenox Disposition possible home in a.m. - Advance Directives Does patient have a Living Will: No Does patient have a Durable POA for Healthcare: No Time Spent Managing Pts Care (In Minutes): 70
[2023-12-23] MEDS: INSULIN REGULAR (HUMAN) 100 UNIT/ML SQ SCH (21:00)
--- NOTE | 2023-12-23 21:03 | RAD REPORT ---
EXAM DESCRIPTION: Ribs Right - 12/23/2023 8:29 pm CLINICAL HISTORY: Right rib margin pain COMPARISON: Chest Single View dated 12/23/2023 TECHNIQUE: Right ribs, 3 views. FINDINGS: No displaced rib fracture is evident. No aggressive rib lesion. No underlying pneumothorax, effusion, infiltrate or pulmonary contusion. IMPRESSION: Negative right rib series.
[2023-12-23] MEDS: FAMOTIDINE 20 MG TAB PO SCH (22:08)
[2023-12-23] MEDS: CYCLOBENZAPRINE 10 MG TAB PO ONE (22:08)
[2023-12-23] MEDS: NA CHLORIDE 0.9% 1,000 ML IV SCH (22:09)
[2023-12-23] MEDS: carvediloL 3.125 MG TAB PO SCH (23:49)
[2023-12-24] MEDS: ACETAMINOPHEN 500 MG TAB PO PRN (05:44)
[2023-12-24] MEDS: PANTOPRAZOLE 40MG TABLET PO SCH (05:45)
[2023-12-24] MEDS: LEVOTHYROXINE SOD 0.025 MG TAB PO SCH (05:45)
[2023-12-24 07:02] LABS: Absolute Basophils 0.1 K/uL (0-0.5); Absolute Lymphocytes (CBC) 1.4 K/uL (0.7-4.9); Absolute Monocytes 0.3 K/uL (0.1-1.3); Absolute Neutrophil 5.7 K/uL (1.8-8.0); Basophils % 0.7 % (0-1.3); Hematocrit 39.3 % (36.0-45.0); Hemoglobin 13.3 g/dL (12.0-15.0); Lymphocytes % 18.2 % (15.3-44.8); MCH 29.9 pg (27.0-35.0); MCHC 33.8 g/dL (32.0-36.0); MCV 88.2 fL (80-100); MPV 7.7 fL (7.6-11.3); Monocytes % 3.9 % (3.3-12.3); Neutrophils % 77.2 % (41.7-73.7); Nucleated Red Blood Cells % 0.1 % (0-0); Platelets 256 thou/uL (152-406); RBC Red Blood Cell Count 4.45 M/uL (3.86-4.86); Red Cell Distribution Width 13.5 % (12.1-15.2)
[2023-12-24 07:19] LABS: Albumin 3.1 g/dL (3.4-5.0); Anion Gap 10.8 mEq/L (5.0-15.0); Bilirubin Total 0.5 mg/dL (0.2-1.0); Potassium 3.8 mEq/L (3.5-5.1); Protein, Total 6.9 g/dL (6.4-8.2)
[2023-12-24 07:20] LABS: Albumin/Globulin Ratio 0.8 (1.1-1.8); Globulin 3.8 g/dL (2.3-3.5)
[2023-12-24] MEDS: HOME MED 1 EA UNK (Semaglutide [Rybelsus] 14 MG Tablet) PO SCH (09:00)
[2023-12-24] MEDS: ASPIRIN EC 81 MG TAB PO SCH (09:50)
[2023-12-24] MEDS: CEFTRIAXONE 1,000 MG in NA CHLORIDE 0.9% 50 ML IVPB SCH (09:50)
[2023-12-24] MEDS: ATORVASTATIN 10 MG TAB PO SCH (09:50)
[2023-12-24] MEDS: METFORMIN HCL 500 MG TAB PO SCH (09:50)
[2023-12-24] MEDS: ENOXAPARIN 40 MG/0.4 ML SQ SCH (09:51)
[2023-12-24] MEDS: CYCLOBENZAPRINE 10 MG TAB PO ONE (09:51)
--- NOTE | 2023-12-24 14:41 | P.PN ---
Subjective Date of Service: 12/24/23 Chief Complaint: Right sided chest pain Pt is resting comfortably in bed. She complain of pain behind her right breast. She had mammogram a few days ago and it was normal. Troponins are negative. She reports having a coughing fit over the past 2 weeks. It is likely pt pulled a muscle in her ribcage. No other complaints. Review of Systems General: Unremarkable Eyes: Unremarkable ENT: Unremarkable Respiratory: Unremarkable Cardiovascular: Chest Pain Gastrointestinal: Unremarkable Genitourinary: Unremarkable Musculoskeletal: Unremarkable Integumentary: Unremarkable Neurological: Unremarkable Lymphatics: Unremarkable Physical Examination - Vital Signs Temperature: 97.5 F Blood Pressure: 147/70 Pulse: 64 Respirations: 16 Pulse Ox (%): 99 - Physical Exam General: Alert, In no apparent distress, Oriented x3 HEENT: Atraumatic, Normocephalic Neck: Supple, 2+ carotid pulse no bruit, JVD not distended Respiratory: Clear to auscultation bilaterally, Normal air movement, Diminished Cardiovascular: No edema, Normal pulses, Regular rate/rhythm, Normal S1 S2 Capillary refill: <2 Seconds Gastrointestinal: Normal bowel sounds, Soft and benign, Non-distended Musculoskeletal: No clubbing, No swelling Integumentary: No rashes, No breakdown Neurological: Normal speech, Normal strength at 5/5 x4 extr, Normal tone, Sensation intact, Cranial nerves 3-12 intact Lymphatics: No axilla or inguinal lymphadenopathy Assessment And Plan - Plan Right-sided chest pain: Likely musculoskeletal. The pain is behind her right breast. Pt had unremarkable mammogram a few days ago. Troponin is negative x 2. Pt reports a pronged period of coughing spell over the past 2 weeks. Consulted Cardiology. Hypertension: uncontrolled. Will continue coreg and prn iv hydralazine. Diabetes mellitus: Continue accuchek, SSI and ADA diet HLD: statin UTI: Continue rocephin and f/u urine cx. DVT prophylaxissubcutaneous Lovenox Disposition: Will dc pt soon
[2023-12-24] MEDS: MORPHINE 2 MG/ML SYR IV PRN (16:15)
[2023-12-24 21:51] VITALS: BMI 23.5
[2023-12-25] MEDS: HYDRALAZINE HCL 20 MG/ML VIAL IV PRN (04:27)
[2023-12-25 12:46] VITALS: BP 155/71; TEMP 97.2
[2023-12-25 13:17] VITALS: O2SAT 97
--- NOTE | 2023-12-25 15:05 | P.DS ---
Admission Date: 12/23/23 Discharge Date: 12/25/23 Disposition: ROUTINE DISCHARGE Discharge Condition: GOOD Reason for Admission: Right sided chest pain Brief History of Present Illness: 73-year-old female with past medical history of hypertension diabetes hypothyroid disease who presented after developing right-sided chest pain, pain is located over the right rib margin radiating towards the back as well as some down the right arm. She also admits to some tingling and pain over the right face, intermittent. She states chest pain waxes and wane, range from 5-10 and not really resolve after a few minutes and they recalled again. She described pain as more stabbing. She denies any history of gallstones as she has had cholecystectomy in the past. She denies any nausea or vomiting until today when she felt some nausea after given multiple pain meds in the emergency room. She admits to some headaches intermittently also. She states she has recently been lifting some things in the garage. Prior to onset of the pain she states she developed a nonproductive cough that was distressing but resolved since yesterday. On arrival in the ED vital signs were stable except for blood pressure in the 140s. Blood pressure gradually worsening to 200/112. Heart rate was in the 70s, EKG shows normal sinus rhythm with no ST segment changes. Chest x-ray shows no pulmonary infiltrate or pulmonary edema. CTA of the chest shows no pulmonary embolism as well as a remote granulomatous changes. No acute intraparenchymal changes noted Initial cardiac enzymes with troponin negative at 4, repeat elevated but still within normal range at 29. Hospital Course: Pt is a 73yo male with past medical history of hypertension, diabetes, and hypothyroid disease who presented after developing right-sided chest pain. Bautista chest pain is located over the right rib margin, radiated towards the back as well as some down the right arm. Pt reported that she developed a non-productive cough that started before the onset of the chest pain. On admission, her BP was elevated. EKG showed normal sinus rhythm with no ST segment changes. Chest x- ray showed no pulmonary infiltrate or pulmonary edema. CTA of the chest showed no pulmonary embolism as well as a remote granulomatous changes. No acute intraparenchymal changes noted. We admitted pt to r/o ACS. Troponin was negative x 4 (18.6 <-50 <- 29 <- 4). The chest pain was due to musculoskeletal in nature. The pain improved with prn pain med. We continued home med for Htn, DMII and HLD. We also gave a short course of rocephin for possible UTI. Pt was in NAD p rior to discharge. Vital Signs/Physical Exam: Temp Pulse Resp BP Pulse Ox 97.2 F 71 16 155/71 H 97 12/25/23 12:00 12/25/23 12:00 12/25/23 12:00 12/25/23 12:00 12/25/23 12:00 Laboratory Data at Discharge: WBC 7.40 thou/uL (4.3-10.9) 12/24/23 06:41 Hgb 13.3 g/dL (12.0-15.0) D 12/24/23 06:41 Hct 39.3 % (36.0-45.0) 12/24/23 06:41 Plt Count 256 thou/uL (152-406) 12/24/23 06:41 PT 11.0 SECONDS (9.5-12.5) 12/23/23 13:43 INR 1.00 12/23/23 13:43 Sodium 134 mEq/L (136-145) L 12/24/23 06:41 Potassium 3.8 mEq/L (3.5-5.1) 12/24/23 06:41 BUN 17 mg/dL (7-18) 12/24/23 06:41 Creatinine 0.76 mg/dL (0.55-1.02) 12/24/23 06:41 Glucose 199 mg/dL (74-106) H 12/24/23 06:41 Magnesium 1.6 mg/dL (1.6-2.4) 12/23/23 13:43 Total Bilirubin 0.5 mg/dL (0.2-1.0) 12/24/23 06:41 AST 11 U/L (15-37) L 12/24/23 06:41 ALT 17 U/L (13-56) 12/24/23 06:41 Alkaline Phosphatase 46 U/L (45-117) D 12/24/23 06:41 Lipase 30 U/L (13-75) 12/23/23 13:43 Home Medications: Atorvastatin Calcium [Lipitor*] 10 mg PO DAILY 12/23/23 Carvedilol [Coreg] 3.125 mg PO BID 12/23/23 Levothyroxine Sodium 25 mcg PO DAILY 12/23/23 Metformin HCl 1,000 mg PO BID 12/23/23 Pantoprazole [Protonix Tab*] 40 mg PO DAILY 12/23/23 Semaglutide [Rybelsus] 14 mg PO DAILY 12/23/23 Hydrocodone 5/APAP 325 [Lisle 5/325] 1 tab PO Q4H PRN 3 Days #18 tab 12/25/23 New Medications: Hydrocodone 5/APAP 325 [[place] 5/325] 1 tab PO Q4H PRN 3 Days #18 tab PRN Reason: Pain Physician Discharge Instructions: Continue ad yon activity. Take L[place] 5/325mg po Q4h prn. Follow up with PCP and Dr. Aguilar within 1 week. Diet: AHA Activity: Ad yon Followup: GAY KEENAN [Primary Care Provider] - Williams Aguilar MD [ACTIVE - CAN ADMIT] -
== END 2023-12-25 16:15 | disposition home or self-care (01) ==
LOC: ER 13:18 → ERHOLD 19:59 → 4TH 21:26
PROVIDERS: ADMIT Internal Medicine; ATTEND Hospitalist
DX: R07.9 Chest pain, unspecified (principal); I10 Essential (primary) hypertension; E11.9 Type 2 diabetes mellitus without complications; E03.9 Hypothyroidism, unspecified; N39.0 Urinary tract infection, site not specified; E78.5 Hyperlipidemia, unspecified; R05.9 Cough, unspecified
CPT/HCPCS: 96365; 85025 ×2; 81001; 80048; 36415 ×3; 83735; 82550; 85610; 82947 ×7; 80076; 84484 ×4; 83690; 80053; 83880; 71275; 71045; 71100; 96375; 99285; Q9967; J0360 ×2; J1650 ×2; J2270 ×3; J1170 ×2; J2405; J2800; J7040; J7030 ×4; J2920; J0696 ×2; 93005; G0378